=== PATIENT | male | born 1945 | race Caucasian/White ===

== ENCOUNTER 2018-11-15 07:15 | Emergency (ER) | payer MEDICARE, MEDICAID ==
[2018-11-15] MEDS ORDERED: Activated Charcoal/Sorbitol 25 GM/120 ML TUBE ONE ×2 (07:54→07:56)
[2018-11-15 08:40] LABS: #Eosinphils 0.1 thou/uL (0.0-0.7); #Lymphocytes 2.1 thou/uL (1.20-3.40); #Monocytes 0.7 thou/uL (0.11-0.59); #Neutrophils 4.4 thou/uL (1.40-6.50); %Basophils 0.2 % (0.0-1.0); %Eosinophils 1.7 % (0.0-10.0); %Lymphocytes 28.6 % (21.0-51.0); %Monocytes 9.1 % (0.0-10.0); %Neutrophils 60.4 % (42.0-75.0); Hemoglobin 16.5 g/dL (14.0-18.0); Mean Corpuscular HGB CONC 33.8 g/dL (32.0-36.0); Mean Corpuscular Hemoglobin 31.5 pg (27.0-31.0); Mean Corpuscular Volume 93.4 fL (78.0-98.0); Mean Platelet Volume 7.8 fL (7.4-10.4); Platelet Count 191 thou/uL (130-400); RBC Distribution Width 11.5 % (11.5-14.5); Red Blood Cell (RBC) Count 5.23 mill/uL (4.70-6.10); White Blood Cell (WBC) Count 7.3 thou/uL (4.8-10.8)
[2018-11-15 08:59] LABS: Acetaminophen Less than 6.0 mcg/mL (10.0-30.0); Alcohol Less than 10 mg/dL (Less than 10); Salicylate Less than 8.0 mg/dL (15.0-30.0)
[2018-11-15 09:00] LABS: ALT (SGPT) 54 U/L (8-55); AST (SGOT) 38 U/L (5-34); Albumin 4.3 g/dL (3.4-4.8); Alkaline Phosphatase 93 U/L (40-150); Anion Gap 18 mmol/L (10-20); BUN (Urea Nitrogen) 17 mg/dL (8.4-25.7); Calc. Creatinine Clearance 0 mL/min (70-130); Carbon Dioxide 22 mmol/L (23-31); Chloride 101 mmol/L (98-107); Estimated GFR-MDRD 64; Globulin 3.2 g/dL (2.4-3.5); Glucose 287 mg/dL (83-110); Magnesium 2.2 mg/dL (1.6-2.6); Potassium 4.3 mmol/L (3.5-5.1); Protein, Total 7.5 g/dL (5.8-8.1); Sodium 137 mmol/L (136-145)
[2018-11-15 10:56] LABS: #Eosinphils 0.1 thou/uL (0.0-0.7); #Lymphocytes 1.5 thou/uL (1.20-3.40); #Monocytes 0.6 thou/uL (0.11-0.59); %Basophils 0.2 % (0.0-1.0); %Eosinophils 0.8 % (0.0-10.0); %Lymphocytes 21.4 % (21.0-51.0); %Monocytes 7.8 % (0.0-10.0); %Neutrophils 69.8 % (42.0-75.0); Hemoglobin 16.4 g/dL (14.0-18.0); Mean Corpuscular HGB CONC 34.3 g/dL (32.0-36.0); Mean Corpuscular Volume 93.3 fL (78.0-98.0); Mean Platelet Volume 8.1 fL (7.4-10.4); Platelet Count 192 thou/uL (130-400); RBC Distribution Width 11.6 % (11.5-14.5); Red Blood Cell (RBC) Count 5.12 mill/uL (4.70-6.10); White Blood Cell (WBC) Count 7.2 thou/uL (4.8-10.8)
[2018-11-15 11:09] LABS: ALT (SGPT) 52 U/L (8-55); AST (SGOT) 36 U/L (5-34); Albumin 4.4 g/dL (3.4-4.8); Alkaline Phosphatase 91 U/L (40-150); Anion Gap 19 mmol/L (10-20); BUN (Urea Nitrogen) 17 mg/dL (8.4-25.7); Bilirubin, Total 0.9 mg/dL (0.2-1.2); Calc. Creatinine Clearance 0 mL/min (70-130); Carbon Dioxide 23 mmol/L (23-31); Chloride 98 mmol/L (98-107); Estimated GFR-MDRD 44; Globulin 3.1 g/dL (2.4-3.5); Glucose 379 mg/dL (83-110); Potassium 4.4 mmol/L (3.5-5.1); Protein, Total 7.5 g/dL (5.8-8.1); Sodium 136 mmol/L (136-145)
[2018-11-15 12:46] LABS: #Eosinphils 0.1 thou/uL (0.0-0.7); #Lymphocytes 1.9 thou/uL (1.20-3.40); #Monocytes 0.6 thou/uL (0.11-0.59); #Neutrophils 5.3 thou/uL (1.40-6.50); %Basophils 0.3 % (0.0-1.0); %Eosinophils 0.7 % (0.0-10.0); %Lymphocytes 24.4 % (21.0-51.0); %Monocytes 7.4 % (0.0-10.0); %Neutrophils 67.2 % (42.0-75.0); Mean Corpuscular HGB CONC 34.6 g/dL (32.0-36.0); Mean Corpuscular Hemoglobin 32.4 pg (27.0-31.0); Mean Corpuscular Volume 93.7 fL (78.0-98.0); Platelet Count 200 thou/uL (130-400); RBC Distribution Width 11.5 % (11.5-14.5); Red Blood Cell (RBC) Count 4.95 mill/uL (4.70-6.10); White Blood Cell (WBC) Count 7.8 thou/uL (4.8-10.8)
[2018-11-15 13:08] LABS: ALT (SGPT) 53 U/L (8-55); AST (SGOT) 37 U/L (5-34); Albumin 4.4 g/dL (3.4-4.8); Alkaline Phosphatase 90 U/L (40-150); Anion Gap 20 mmol/L (10-20); BUN (Urea Nitrogen) 17 mg/dL (8.4-25.7); Calc. Creatinine Clearance 0 mL/min (70-130); Carbon Dioxide 23 mmol/L (23-31); Chloride 97 mmol/L (98-107); Estimated GFR-MDRD 58; Glucose 346 mg/dL (83-110); Magnesium 1.9 mg/dL (1.6-2.6); Potassium 4.1 mmol/L (3.5-5.1); Protein, Total 7.4 g/dL (5.8-8.1); Sodium 136 mmol/L (136-145)
[2018-11-15 15:01] LABS: #Lymphocytes 2.2 thou/uL (1.20-3.40); #Monocytes 0.7 thou/uL (0.11-0.59); #Neutrophils 5.3 thou/uL (1.40-6.50); %Basophils 0.5 % (0.0-1.0); %Eosinophils 0.4 % (0.0-10.0); %Lymphocytes 26.4 % (21.0-51.0); %Neutrophils 64.7 % (42.0-75.0); Hemoglobin 16.1 g/dL (14.0-18.0); Mean Corpuscular Hemoglobin 32.1 pg (27.0-31.0); Mean Corpuscular Volume 94.3 fL (78.0-98.0); Mean Platelet Volume 8.2 fL (7.4-10.4); Platelet Count 201 thou/uL (130-400); RBC Distribution Width 11.6 % (11.5-14.5); Red Blood Cell (RBC) Count 5.01 mill/uL (4.70-6.10); White Blood Cell (WBC) Count 8.2 thou/uL (4.8-10.8)
[2018-11-15 15:27] LABS: ALT (SGPT) 53 U/L (8-55); AST (SGOT) 39 U/L (5-34); Albumin 4.3 g/dL (3.4-4.8); Alkaline Phosphatase 88 U/L (40-150); Anion Gap 18 mmol/L (10-20); BUN (Urea Nitrogen) 16 mg/dL (8.4-25.7); Bilirubin, Total 0.8 mg/dL (0.2-1.2); Calc. Creatinine Clearance 0 mL/min (70-130); Calcium 9.6 mg/dL (7.8-10.44); Carbon Dioxide 25 mmol/L (23-31); Chloride 98 mmol/L (98-107); Estimated GFR-MDRD 42; Globulin 3.1 g/dL (2.4-3.5); Glucose 332 mg/dL (83-110); Potassium 4.1 mmol/L (3.5-5.1); Protein, Total 7.4 g/dL (5.8-8.1); Sodium 137 mmol/L (136-145)
== END 2018-11-15 15:49 | disposition home or self-care (01) ==
LOC: ERS 07:15
DX: T50.1X1A Poisoning by loop [high-ceiling] diuretics, accidental (unintentional), initial encounter (principal); I10 Essential (primary) hypertension
CPT/HCPCS: 36415; 80053; 80307; 83735; 85025; 93005; 96360

== ENCOUNTER 2019-06-16 13:25 | Outpatient (CLI) | payer MEDICARE, MEDICAID ==
[2019-06-16 15:27] LABS: #Basophils 0.1 thou/uL (0.0-0.2); #Eosinphils 0.3 thou/uL (0.0-0.7); #Lymphocytes 2.8 thou/uL (1.20-3.40); #Monocytes 0.8 thou/uL (0.11-0.59); #Neutrophils 6.4 thou/uL (1.40-6.50); %Basophils 0.5 % (0.0-1.0); %Eosinophils 2.6 % (0.0-10.0); %Lymphocytes 27.1 % (21.0-51.0); %Monocytes 7.6 % (0.0-10.0); %Neutrophils 62.3 % (42.0-75.0); Hemoglobin 14.9 g/dL (14.0-18.0); Mean Corpuscular Hemoglobin 30.9 pg (27.0-31.0); Mean Platelet Volume 7.9 fL (7.4-10.4); Platelet Count 195 thou/uL (130-400); RBC Distribution Width 11.6 % (11.5-14.5); White Blood Cell (WBC) Count 10.3 thou/uL (4.8-10.8)
[2019-06-16 15:47] LABS: ALT (SGPT) 23 U/L (8-55); AST (SGOT) 19 U/L (5-34); Albumin 4.4 g/dL (3.4-4.8); Alkaline Phosphatase 78 U/L (40-150); Anion Gap 13 mmol/L (10-20); BUN (Urea Nitrogen) 18 mg/dL (8.4-25.7); Bilirubin, Total 0.9 mg/dL (0.2-1.2); Calc. Creatinine Clearance 0 mL/min (70-130); Calcium 9.6 mg/dL (7.8-10.44); Carbon Dioxide 28 mmol/L (23-31); Chloride 102 mmol/L (98-107); Estimated GFR-MDRD 56; Globulin 2.8 g/dL (2.4-3.5); Glucose 162 mg/dL (83-110); Potassium 4.2 mmol/L (3.5-5.1); Protein, Total 7.2 g/dL (5.8-8.1); Sodium 139 mmol/L (136-145)
== END 2019-06-16 13:26 | disposition home or self-care (01) ==
LOC: LABBT 13:25
PROVIDERS: ATTEND Internal Medicine Cardiovascular Disease
DX: Z01.812 Encounter for preprocedural laboratory examination (principal); I24.9 Acute ischemic heart disease, unspecified
CPT/HCPCS: 80053; 85025

== ENCOUNTER 2019-06-22 05:58 | Inpatient (IN) | payer MEDICARE, MEDICAID ==
[2019-06-22] MEDS ORDERED: Lidocaine 1% (PF) 30 ML VIAL ONE (06:33)
[2019-06-22] MEDS ORDERED: Protamine Sulfate 50 MG/5 ML VIAL ONE (06:33)
[2019-06-22] MEDS ORDERED: Heparin 10,000 UNITS/1 ML VIAL ONE (06:33)
[2019-06-22 06:55] LABS: Cardiac Risk 3.4 (Less than 4.5)
[2019-06-22] MEDS ORDERED: Fentanyl 100 MCG/2 ML VIAL ONE (07:12)
[2019-06-22] MEDS ORDERED: Midazolam HCl 2 mg/2 ml Vial ONE (07:12)
[2019-06-22] MEDS ORDERED: Nitroglycerin 0.4 MG TAB (25 Tab Bottle) SL PRN (08:01)
[2019-06-22] MEDS ORDERED: Acetaminophen/Codeine 30-300mg Tablet PO PRN ×2 (08:01)
[2019-06-22] MEDS ORDERED: Sodium Chloride 0.9% 200 ML IV PRN (08:01)
[2019-06-22] MEDS ORDERED: Sodium Chloride 0.9% 1,000 ML IV SCH (08:15)
[2019-06-22] MEDS ORDERED: Iopamidol 370 76% 100 ML VIAL ONE (10:00)
[2019-06-22] MEDS ORDERED: Iopamidol 370 76% 50 ML VIAL FS ONE (10:00)
[2019-06-22] MEDS ORDERED: Communication Order-Pharmacy FS SCH (11:53)
[2019-06-22] MEDS: Sodium Chloride 0.9% 1,000 ML IV SCH ×3 (12:26→21:48)
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
[2019-06-22] MEDS: Niacin 500 MG TAB PO SCH ×3 (13:28→20:49)
[2019-06-22] MEDS ORDERED: CINNAMON BARK PO SCH (15:00)
[2019-06-22] MEDS: Gabapentin 300 MG CAP PO SCH ×2 (15:02→20:50)
[2019-06-22] MEDS: Mupirocin 2% Ointment 22 GM Tube TOP SCH ×3 (16:01→21:10)
--- NOTE | 2019-06-22 17:57 | RAD ---
XR Chest Pa Lat STANDARD History: CABG preop Comparison: Radiograph 2003 Findings: Multiple midline sternotomy wires. Heart size mildly enlarged. Lungs are clear. No pneumoth orax or effusion. No acute osseous abnormality. 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 Impression: No acute intrathoracic abnormality.
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
[2019-06-22] MEDS: Rosuvastatin 20 MG TAB PO SCH (20:48)
[2019-06-22] MEDS: Lysine 500 MG TAB PO SCH (20:49)
[2019-06-22] MEDS: Aspirin 325 MG TAB PO SCH (20:49)
[2019-06-22] MEDS: Atenolol 50 MG TAB PO SCH (20:49)
[2019-06-22] MEDS: Docusate 100 MG CAP PO SCH (20:50)
[2019-06-22] MEDS: SAW PALMETTO PO SCH (20:55)
[2019-06-22] MEDS ORDERED: Mupirocin 2% Ointment (Nasal) 1 GM TUBE EA NARE SCH (21:00)
[2019-06-22] MEDS ORDERED: CeleCOXIB 100 MG CAP PO SCH (21:00)
[2019-06-22] MEDS: Latanoprost 0.005% Ophth Soln 2.5 ml Bottle EA EYE SCH (21:08)
[2019-06-23] MEDS: Sodium Chloride 0.9% 1,000 ML IV SCH ×2 (01:00→08:33)
[2019-06-23 05:52] LABS: Hemoglobin A1c 7.1 % (4.0-6.0)
[2019-06-23 06:01] LABS: Anion Gap 11 mmol/L (10-20); BUN (Urea Nitrogen) 16 mg/dL (8.4-25.7); Calc. Creatinine Clearance 101 mL/min (70-130); Calcium 9.1 mg/dL (7.8-10.44); Carbon Dioxide 26 mmol/L (23-31); Chloride 108 mmol/L (98-107); Estimated GFR-MDRD 61; Glucose 161 mg/dL (83-110); Potassium 4.6 mmol/L (3.5-5.1); Sodium 140 mmol/L (136-145)
[2019-06-23] MEDS: Furosemide 20 MG TAB PO SCH (08:37)
[2019-06-23] MEDS: Ascorbic Acid 500 mg Chewable Tablet PO SCH (08:37)
[2019-06-23] MEDS: Calcium Carbonate + Vit D 1 TAB PO SCH (08:37)
[2019-06-23] MEDS: Docusate 100 MG CAP PO SCH ×2 (08:37→21:34)
[2019-06-23] MEDS: Gabapentin 300 MG CAP PO SCH ×3 (08:37→21:35)
[2019-06-23] MEDS: Atenolol 50 MG TAB PO SCH ×2 (08:37→21:33)
[2019-06-23] MEDS: Niacin 500 MG TAB PO SCH ×4 (08:38→21:39)
[2019-06-23] MEDS: Lysine 500 MG TAB PO SCH ×2 (08:38→21:36)
[2019-06-23] MEDS: Multivit, Therapeutic 1 TAB PO SCH (08:38)
[2019-06-23] MEDS: Ubidecarenone 50 MG CAP PO SCH (08:39)
[2019-06-23] MEDS: SAW PALMETTO PO SCH ×2 (08:41→21:40)
[2019-06-23] MEDS: Mupirocin 2% Ointment 22 GM Tube TOP SCH ×4 (08:42→21:36)
[2019-06-23] MEDS ORDERED: CRANBERRY PO SCH (09:00)
[2019-06-23] MEDS: Aspirin 325 MG TAB PO SCH (21:33)
[2019-06-23] MEDS: Latanoprost 0.005% Ophth Soln 2.5 ml Bottle EA EYE SCH (21:35)
[2019-06-23] MEDS: Rosuvastatin 20 MG TAB PO SCH (21:41)
[2019-06-24] MEDS: Mupirocin 2% Ointment 22 GM Tube TOP SCH ×6 (04:07→22:44)
[2019-06-24] MEDS ORDERED: Albumin 5% 500 ML ONE ×2 (06:38→12:41)
[2019-06-24] MEDS ORDERED: Fentanyl 250 MCG/5 ML VIAL ONE ×2 (06:40→09:26)
[2019-06-24] MEDS ORDERED: Midazolam HCl 5 mg/5 ml Vial ONE ×3 (06:40→14:09)
[2019-06-24] MEDS ORDERED: CABG-Vancomycin 1.5 GM in Sodium Chloride 0.9% 250 ML 300 ML IVPB SCH (06:45)
[2019-06-24] MEDS ORDERED: DEXTROSE IVPB SCH (07:00)
[2019-06-24] MEDS ORDERED: LEVOFLOXACIN IVPB SCH (07:00)
[2019-06-24] MEDS ORDERED: Heparin 10,000 UNITS/1 ML VIAL 30,000 UNITS in Sodium Chloride 0.9% 1,000 ML FS SCH (07:15)
[2019-06-24] MEDS ORDERED: Dexmedetomidine 200 MCG/2 ML VIAL ONE (08:03)
[2019-06-24] MEDS ORDERED: Insulin Regular 300 UNITS/3 ML VIAL ONE (08:22)
[2019-06-24] MEDS ORDERED: Vancomycin HCl 500 MG in Sodium Chloride 0.9% 100 ML IVPB SCH ×2 (10:15→15:45)
[2019-06-24] MEDS ORDERED: PHENYLEPHRINE-NS 100 MCG/ML 10 ML SYRINGE ONE ×2 (10:28→16:29)
[2019-06-24] MEDS ORDERED: Levofloxacin 500 mg/D5W 100 ml Premix Bag ONE (10:28)
[2019-06-24] MEDS ORDERED: Phenylephrine HCL 10 MG/ML VIAL ONE (10:30)
[2019-06-24 10:40] LABS: Actual Bicarbonate (HCO3a) 23.4 mEq/L (22-28); Base Excess (BEa) -4.6 mEq/L (-2.0 to +3.0); CO2 Tension 55.4 mmHg (35.0-45.0); Calcium, Ionized 1.11 mmol/L (1.12-1.30); Carboxyhemoglobin (COHb) 0.5 gm% (0.0-3.0); Hemoglobin (Hb) 13.1 g/dL (14.0-18.0); O2 Tension (PaO2) 350.1 mmHg (> 70.0); Potassium - ABG Lab 4.23 mmol/L (3.70-5.30)
[2019-06-24 10:41] LABS: pH, Arterial 7.24 (7.35-7.45)
[2019-06-24] MEDS ORDERED: Guaifenesin DM 100-10/5 ML UDCUP PO PRN (11:10)
[2019-06-24] MEDS ORDERED: Mag-Al 1200 mg/1200 mg/30 ML UDCUP PO PRN (11:10)
[2019-06-24] MEDS ORDERED: Fentanyl 100 MCG/2 ML VIAL SLOW IVP PRN ×2 (11:10)
[2019-06-24] MEDS ORDERED: hydrALAZINE 20 MG/ML VIAL SLOW IVP PRN (11:10)
[2019-06-24] MEDS ORDERED: Bisacodyl 5 MG TAB PO PRN (11:10)
[2019-06-24] MEDS ORDERED: Promethazine HCl 25 MG/ML VIAL IM PRN (11:10)
[2019-06-24] MEDS ORDERED: Post-Op Insulin Drip Protocol IVPB ONE (11:10)
[2019-06-24] MEDS ORDERED: Norepinephrine 8 MG/0.9% NS 250 ML IVPB PRN (11:10)
[2019-06-24] MEDS ORDERED: Acetaminophen 325 MG TAB PO PRN (11:10)
[2019-06-24] MEDS ORDERED: Nitroglycerin 50 MG/250 ML BOT 250 ML IVPB PRN (11:10)
[2019-06-24] MEDS ORDERED: Bisacodyl 10 MG SUPP PR PRN (11:10)
[2019-06-24] MEDS ORDERED: niCARdipine 25 MG in Sodium Chloride 0.9% 250 ML 250 ML IVPB PRN (11:10)
[2019-06-24] MEDS ORDERED: Ondansetron PF 4 MG/2 ML Vial IVP PRN (11:10)
[2019-06-24] MEDS ORDERED: Potassium Chloride 20 MEQ/100 ML PREMIX BAG IVPB PRN (11:10)
[2019-06-24] MEDS ORDERED: Hetastarch 6% 500 ML 500 ML IVPB PRN (11:10)
[2019-06-24] MEDS ORDERED: Rocuronium Bromide 50 MG/5 ML VIAL ONE (11:24)
[2019-06-24] MEDS ORDERED: Vecuronium 10 MG VIAL ONE ×2 (11:26→16:29)
[2019-06-24] MEDS ORDERED: Dextrose 50% Abboject 50 ML SYRINGE SLOW IVP PRN (12:05)
[2019-06-24] MEDS ORDERED: Insulin Regular 300 UNITS/3 ML VIAL SC PRN (12:05)
[2019-06-24] MEDS ORDERED: HUMULIN R 100 UNITS in Sodium Chloride 0.9% 100 ML IVPB SCH (12:05)
[2019-06-24] MEDS ORDERED: Dextrose 5% in Water 1,000 ML IV PRN (12:05)
[2019-06-24] MEDS: Lysine 500 MG TAB PO SCH ×2 (14:32→22:13)
[2019-06-24] MEDS: Gabapentin 300 MG CAP PO SCH ×3 (14:32→22:13)
[2019-06-24] MEDS: Ascorbic Acid 500 mg Chewable Tablet PO SCH (14:32)
[2019-06-24] MEDS: Calcium Carbonate + Vit D 1 TAB PO SCH (14:32)
[2019-06-24] MEDS: Docusate 100 MG CAP PO SCH ×2 (14:32→22:13)
[2019-06-24] MEDS: Multivit, Therapeutic 1 TAB PO SCH (14:33)
[2019-06-24] MEDS: Niacin 500 MG TAB PO SCH ×3 (14:33→22:13)
[2019-06-24] MEDS: SAW PALMETTO PO SCH ×2 (14:35→22:14)
[2019-06-24] MEDS: Ubidecarenone 50 MG CAP PO SCH (14:36)
[2019-06-24] MEDS: Sodium Chloride 0.9% 1,000 ML IV SCH ×2 (14:37→17:53)
[2019-06-24] MEDS: Atenolol 50 MG TAB PO SCH (14:46)
[2019-06-24] MEDS: Furosemide 20 MG TAB PO SCH (14:47)
[2019-06-24] MEDS ORDERED: Mannitol 12.5 GM/50 ML ONE (16:29)
[2019-06-24] MEDS ORDERED: Sodium Bicarb 50 MEQ/50 ML VIAL ONE (16:29)
[2019-06-24] MEDS ORDERED: Heparin 30,000 units/30 ml VIAL ONE (16:29)
[2019-06-24] MEDS ORDERED: Heparin 5,000 UNITS/ML VIAL ONE (16:29)
[2019-06-24] MEDS ORDERED: Lidocaine 2% PF 100 mg/5 ml Syringe ONE (16:29)
[2019-06-24] MEDS ORDERED: Protamine Sulfate 250 MG/25 ML VIAL ONE (16:29)
[2019-06-24] MEDS ORDERED: Papaverine 60 MG/2 ML VIAL ONE (16:29)
[2019-06-24] MEDS ORDERED: Thrombin 5000 UNITS/5 ML VIAL ONE (16:29)
[2019-06-24] MEDS ORDERED: DOPamine 400 MG/10 ML VIAL ONE (16:29)
[2019-06-24] MEDS ORDERED: Calcium Chloride 1 GM/10 ML Abboject SYRINGE ONE (16:29)
[2019-06-24] MEDS ORDERED: PROPOFOL 200 MG/20 ML VIAL ONE (16:29)
[2019-06-24] MEDS ORDERED: Cardioplegic Soln 1,000 ML BAG ONE (16:29)
[2019-06-24] MEDS ORDERED: Aminocaproic Acid 5 GM/20 ML VIAL ONE (16:29)
[2019-06-24] MEDS ORDERED: Ondansetron PF 4 MG/2 ML Vial ONE (16:29)
[2019-06-24] MEDS ORDERED: Potassium Chloride 60 MEQ/30 ML VIAL ONE (16:29)
[2019-06-24] MEDS ORDERED: Magnesium 5 GM/10 ML VIAL ONE (16:29)
[2019-06-24] MEDS ORDERED: Rocuronium Bromide 10 MG/ML (10ML VIAL) ONE (16:29)
[2019-06-24 17:00] LABS: Hemoglobin 13.4 g/dL (14.0-18.0); Mean Corpuscular HGB CONC 34.7 g/dL (32.0-36.0); Mean Corpuscular Hemoglobin 31.6 pg (27.0-31.0); Mean Corpuscular Volume 91.2 fL (78.0-98.0); Mean Platelet Volume 7.8 fL (7.4-10.4); Platelet Count 202 thou/uL (130-400); RBC Distribution Width 12.2 % (11.5-14.5); Red Blood Cell (RBC) Count 4.24 mill/uL (4.70-6.10); White Blood Cell (WBC) Count 22.4 thou/uL (4.8-10.8)
[2019-06-24] MEDS ORDERED: Norepinephrine 8 MG in Dextrose 5% in Water 242 ML IVPB PRN (17:00)
[2019-06-24 17:04] LABS: INR-International Normal Ratio 1.3; PTT 31.8 SEC (22.9-36.1)
--- NOTE | 2019-06-24 17:09 | RAD ---
RADIOGRAPH CHEST 1 VIEW: DATE: 06/24/2019 TIME: 4:44 PM HISTORY: 73-year-old male status post open heart surgery COMPARISON: 06/22/2019 FINDINGS: Again noted are the sternotomy wires and surgical clips over the left mediastinum and heart. New findings of endotracheal tube, right-sided chest tube, right subclavian central line, dense opaci fication of the left lung base. No pneumothorax visualized, but this is a supine image which would be insensitive for pneumothorax de tection. No pulmonary edema. IMPRESSION: 1. Status post open heart surgery with life support lines as listed above. 2. Left lower lobe atelectasis.
[2019-06-24 17:11] LABS: Base Excess (BEa) -4.5 mEq/L (-2.0 to +3.0); CO2 Tension 34.9 mmHg (35.0-45.0); Calcium, Ionized 1.08 mmol/L (1.12-1.30); Carboxyhemoglobin (COHb) 1.6 gm% (0.0-3.0); Hemoglobin (Hb) 13.4 g/dL (14.0-18.0); O2 Tension (PaO2) 93.5 mmHg (> 70.0); Potassium - ABG Lab 4.57 mmol/L (3.70-5.30); pH, Arterial 7.38 (7.35-7.45)
[2019-06-24 17:23] LABS: Anion Gap 12 mmol/L (10-20); BUN (Urea Nitrogen) 13 mg/dL (8.4-25.7); Calc. Creatinine Clearance 117 mL/min (70-130); Calcium 8.3 mg/dL (7.8-10.44); Carbon Dioxide 21 mmol/L (23-31); Chloride 113 mmol/L (98-107); Estimated GFR-MDRD 69; Glucose 199 mg/dL (83-110); Potassium 5.1 mmol/L (3.5-5.1); Sodium 141 mmol/L (136-145)
[2019-06-24 17:31] LABS: Band 19 % (5-11); Lymphocytes 12 % (21-51); MDiff Complete? YES; Metamyelocyte 2 % (0-0); Monocytes 9 % (0-10); Neutrophil 58 % (42-75); Platelet Morphology Comment Appears Adequate; Polychromasia SLIGHT = 2-3 cells (100X) (0-2/hpf)
[2019-06-24] MEDS: Sodium Bicarb 50 MEQ/50 ML VIAL ONE (17:39)
[2019-06-24 18:40] LABS: Actual Bicarbonate (HCO3a) 20.7 mEq/L (22-28); CO2 Tension 36.6 mmHg (35.0-45.0); Calcium, Ionized 1.08 mmol/L (1.12-1.30); Carboxyhemoglobin (COHb) 1.1 gm% (0.0-3.0); Hemoglobin (Hb) 12.3 g/dL (14.0-18.0); O2 Tension (PaO2) 118.4 mmHg (> 70.0); Potassium - ABG Lab 4.24 mmol/L (3.70-5.30); pH, Arterial 7.37 (7.35-7.45)
[2019-06-24 18:42] LABS: Puncture Site LINE
[2019-06-24 20:24] LABS: Hemoglobin 12.4 g/dL (14.0-18.0)
[2019-06-24 20:40] LABS: Potassium 3.7 mmol/L (3.5-5.1)
[2019-06-24 20:48] LABS: Actual Bicarbonate (HCO3a) 22.3 mEq/L (22-28); Analyzer IN Cardio ER; Base Excess (BEa) -1.9 mEq/L (-2.0 to +3.0); CO2 Tension 36.1 mmHg (35.0-45.0); Calcium, Ionized 1.09 mmol/L (1.12-1.30); Carboxyhemoglobin (COHb) 0.3 gm% (0.0-3.0); Hemoglobin (Hb) 12.7 g/dL (14.0-18.0); O2 Tension (PaO2) 118.6 mmHg (> 70.0); Potassium - ABG Lab 3.83 mmol/L (3.70-5.30); pH, Arterial 7.41 (7.35-7.45)
[2019-06-24] MEDS: Famotidine/PF 20 mg/2ml Vial SLOW IVP SCH (21:27)
[2019-06-24 21:35] LABS: Puncture Site LINE
[2019-06-24 21:36] LABS: ALV-art Gradient -92.425 (0-20)
[2019-06-24] MEDS: Rosuvastatin 20 MG TAB PO SCH (22:14)
[2019-06-24] MEDS: Latanoprost 0.005% Ophth Soln 2.5 ml Bottle EA EYE SCH (22:38)
[2019-06-24] MEDS: HYDROcodone/Acetaminophen 5/325 mg Tablet PO PRN (22:55)
--- NOTE | 2019-06-24 23:22 | OP ---
DATE OF PROCEDURE: 06/24/2019 PROCEDURES PERFORMED: Redo coronary artery bypass grafting x3 with right internal mammary artery to the PDA and reverse greater saphenous vein graft from aorta to the obtuse marginal and from the obtuse marginal graft to the diagonal. 5-Mongolian right common femoral arterial line placement with ultrasonographic guidance. SLIDE MAKER: Lacho. ANESTHESIA: General endotracheal anesthesia. INDICATIONS: The patient is a 73-year-old man about 20 years status post coronary artery bypass grafting. He is a regular bicycle rider, but had had a protracted abstinence from riding due to inclement weather. When he recently restarted his regular regimen, he noticed chest tightness which was distinctly different from the heartburn type pain that was a manifestation of his angina 20 years ago. Resting nuclear images were fairly unremarkable, but stress images were quite difficult to interpret, prompting cardiac catheterization that demonstrated patency of his left internal mammary graft to his LAD, but occlusion of his vein grafts. He had faint filling by collaterals of his distal right system, very faint hint of an obtuse marginal and disease in a small ramus vessel and a small diagonal. He had a fairly large heart, but good ventricular function. After discussing options with him, he is now taken to the operating room for surgical revascularization. FINDINGS: Pump time 185 minutes. Cross-clamp time 76 minutes. Good quality right CLEVE and saphenous vein. There was an island of plaque in the ascending aorta prompting left common femoral arterial cannulation in construction of his obtuse marginal proximal anastomosis under cross-clamp and the heart was quite large with extensive retraction of the pericardium. The diagonal was diffusely diseased distally where grafted, it was 1.5 to 2 mm in diameter. The obtuse marginal was diffusely diseased with rock hard plaque with residual islands of plaque distally at its bifurcation, there it was a 1.5 to 2 mm vessel. The PDA was about a 1.5 mm somewhat sclerotic vessel. A femoral arterial line was placed at the conclusion of the procedure because of dampening of the waveform in the radial arterial line, about 20 mmHg gradient systolic pressures between it and the cuff. NARRATIVE REPORT: After informed consent was obtained, the patient was taken to the operating room and placed in supine position on the operating table. After the induction of general anesthesia, the patient's left greater saphenous vein was ultrasonographically mapped and marked. A triple-lumen central line kit was used to place a right subclavian central line by the Seldinger technique after prepping and draping his right upper chest. All 3 ports were easily aspirated and flushed. The line was secured. The patient's torso, groins, and lower extremities were prepped and draped in sterile fashion. A knife and electrocautery were used to incise the soft tissues through the scar of the previous sternotomy incision. The wires were cut and removed and the midline of the sternum was marked with the electrocautery. Adhesions to the posterior table of the sternum at epigastric end were developed by blunt dissection as far as I could reach with my finger without much difficulty. An oscillating saw was then used to divide the sternum. The electrocautery was used to mobilize adhesions at the central edge of the posterior table of the sternum and then an CLEVE retractor was put into place under the left half of the sternum. Initially, the electrocautery was used to lyse adhesions to the posterior chest wall and as the heart was exposed, scissors were used sharply. Blunt dissection was used to further develop the plane posterior to the right half of the sternum and then a Iniguez retractor with some difficulty was put into place. Scissors were used to sharply lyse intrapericardial adhesions starting at the diaphragmatic surface and progressing around the right side of the heart up onto the ascending aorta at the level of the previous cannulation site. The occluded right coronary vein graft was ligated and divided to facilitate with this exposure. Short dissection was carried leftward out to the retracted edge of the pericardium. The Iniguez retractor was removed and an CLEVE retractor was put under the right edge of the sternum. The right pleural space was entered and the right internal mammary artery was mobilized as a skeletonized in-situ graft beyond its bifurcation distally to near where it originated from the subclavian artery. The patient was heparinized and the mammary was ligated and divided distally. It was transected at the level of the bifurcation and there was good flow through it. Papaverine solution was instilled intraluminally. The mammary bed was inspected for hemostasis. The CLEVE retractor was replaced with a Iniguez retractor and ultimately with a Peck retractor because of difficulty with positioning of the Iniguez retractor. When further adhesions were taken down and the aorta reexamined, an island of plaque could be appreciated anteriorly to the right of midline, a little proximal to the level of the previous cannulation site, which had been controlled with pledgeted sutures. It did not appear that it would be readily feasible to dissect out the arch of pump or to cannulate and clamp the aorta below the level of that plaque. An oblique incision was made parallel to the left groin crease and the common femoral artery was exposed. It was clamped at its bifurcation. A small stab incision was made in its anterior surface and an 18-Mongolian femoral arterial cannula was inserted. The obturator was removed and the cannula was clamped and secured with umbilical tape, Yohannes, and heavy silk suture. It was de-aired and connected to the cardiopulmonary bypass circuit. A pursestring was placed in the right atrium near the remnant of the appendage and a venous cannula was inserted. Cardiopulmonary bypass was instituted and the patient was kept warm. With the patient decompressed, it was easier to dissect out the base of the arch and to dissect the left innominate vein off the aorta and pledgets to cannulation site. After having accomplished this with aorta decompressed on pump, it seemed feasible that a clamp could be placed between the innominate artery and the previous cannulation site thus avoiding the island of plaque. Sharp dissection was then used to take down the remaining intrapericardial adhesions and to extensively mobilize the left mammary pedicle. The heart was extremely large and this was a fairly long drawn out process to adequately mobilize it and the mammary to allow for exposure of the anterolateral surface of the heart. When that had been accomplished, cooling was initiated and a cruciate incision was made just anterior to the inferior cava near the level of its junction with the right atrium to allow for passage of the right mammary into the pericardium in line with the PDA. An aortic cross-clamp was applied and cardioplegia was administered through an aortic root needle. The left mammary pedicle was clamped with bulldog clamps. When arrest have been achieved, attention was turned to the anterolateral aspect of the heart. The previously grafted obtuse marginal was easily palpated and when the heart was withdrawn up into the field, the graft to it proximally could be appreciated. The vessel was deep within the epicardial fat. It was exposed and then followed out fairly distally to get to a point, where the vessel felt soft enough to be able to open and so an arteriotomy was made near bifurcation point and extended onto a good quality small branch distally using that as the toe. The arteriotomy was then extended across an island of plaque into the obtuse marginal proper and reverse greater saphenous vein was anastomosed to it end-to-side with running Prolene suture. The anastomosis was tested by flushing cold cardioplegia down the graft, 2 small leaks were controlled with [id number] 7-0 Prolene sutures. The graft flushed fairly easily. Attention was then turned to the diagonal. Again, it was readily palpable, though not visible. It was dissected out deep to the epicardial fat and opened at a relative soft spot distally. Saphenous vein was anastomosed to it end-to-side. Attention was then turned to the PDA. It was exposed a little bit distal to the previous vein graft. Distal anastomosis was a fairly sclerotic vessel at that point and was followed distally to where it became a better quality vessel. It was opened and the mammary was anastomosed to it end-to-side with running 7-0 Prolene. Additional cardioplegia was administered as the cross-clamp time to that point was approaching 1 hour. An 11 blade scalpel was used to make an incision in the king of what appeared to represent the previous obtuse marginal proximal anastomosis, that graft had already been ligated and divided to facilitate with lysis of intrapericardial adhesions. There did not appear to be much residual lumen of the vein itself and the arteriotomy was extended onto the aorta itself toward the toe of that previous anastomosis. The obtuse marginal graft was then anastomosed there end to side with running 6-0 Prolene suture. The patient was placed in Trendelenburg and the root needle was placed back on suction and the aortic cross-clamp was removed after having first flushed the aorta of excess air through the frustrated proximal anastomotic suture line. The diagonal graft was then distended. The bulldogs were removed from the right and left mammaries. The diagonal graft was distended and oriented and a point on the OM graft was selected for proximal anastomosis, that segment of OM graft was isolated between bulldog clamps and opened and the diagonal graft was anastomosed to it end-to-side with running 6-0 Prolene. Inflow was reestablished into that graft to help flush it and the suture line secured. Again, both vein grafts were de-aired and the remaining bulldogs removed from them. The anastomoses were inspected for hemostasis. A posterior pericardial drain and a right pleural drain were brought out through a separate incision and secured with suture. Right atrial and right ventricular temporary epicardial pacing wires were placed. When the patient was adequately warmed and had good contractility with a negative rhythm, he was then easily from cardiopulmonary bypass. The root needle was removed and its insertion site oversewn with a pursestring suture. The venous cannula was removed and its pursestring secured with Yohannes. The patient was autotransfused through the femoral cannula which was then removed using a Satinsky clamp to reestablish proximal control. The puncture site in the femoral artery was oversewn with a Prolene suture and the clamps removed. Test dose of protamine was well-tolerated and when about half of the protamine dose had been administered, the atrial pursestring was secured. Plasma and platelets were administered to facilitate achievement of hemostasis because of the diffuse bleeding in the face of a long pump run. When hemostasis was adequate, an anterior mediastinal drain was placed. The mediastinal fat was tacked together in an attempt to insulate the aorta and vein grafts from the sternum. Vancomycin paste and platelet rich GPS were applied to the cut surfaces of the sternum, which was then reapproximated with a combination of simple and [id number] #7 stainless steel wires. The soft tissues were irrigated and treated with platelet poor GPS. The fascia was closed over the wires with heavy Vicryl. The subcutaneous tissue was reapproximated with 2-0 Vicryl and the skin was closed with Vicryl subcuticular suture. The groin was inspected for hemostasis and closed in layers of subcutaneous and subcuticular Vicryl similar to how the vein harvest port site had been closed. Because of damping of the radial A-line pressure line and even when a good pressure waveform was re-established, there was a significant gradient of about 20 mmHg between the systolic pressures measured with the A-line and the cuff. A right femoral A-line was placed. Ultrasound was used to identify the common femoral bifurcation and to facilitate cannulation of the common femoral above that point and then by the Seldinger technique, a 5-Mongolian catheter was placed over the wire. The pressure tubing was allowed to back bleed before flushing it, there was a good waveform which correlated well with the cuff pressure, the line was secured. The wounds were dressed. The patient was taken to the intensive care unit in stable condition. Job ID: [id number]
[2019-06-25] MEDS: Sodium Chloride 0.9% 1,000 ML IV SCH (00:55)
[2019-06-25 04:17] LABS: #Monocytes 1.3 thou/uL (0.11-0.59); #Neutrophils 9.3 thou/uL (1.40-6.50); %Eosinophils 0.1 % (0.0-10.0); %Lymphocytes 8.9 % (21.0-51.0); Hemoglobin 10.4 g/dL (14.0-18.0); Mean Corpuscular Volume 91.4 fL (78.0-98.0); Mean Platelet Volume 7.3 fL (7.4-10.4); Platelet Count 140 thou/uL (130-400); RBC Distribution Width 12.5 % (11.5-14.5); Red Blood Cell (RBC) Count 3.24 mill/uL (4.70-6.10); White Blood Cell (WBC) Count 11.6 thou/uL (4.8-10.8)
[2019-06-25 04:29] LABS: Anion Gap 12 mmol/L (10-20); BUN (Urea Nitrogen) 13 mg/dL (8.4-25.7); Calc. Creatinine Clearance 133 mL/min (70-130); Calcium 7.9 mg/dL (7.8-10.44); Carbon Dioxide 23 mmol/L (23-31); Chloride 113 mmol/L (98-107); Estimated GFR-MDRD 80; Glucose 105 mg/dL (83-110); Potassium 4.1 mmol/L (3.5-5.1); Sodium 144 mmol/L (136-145)
[2019-06-25] MEDS: HYDROcodone/Acetaminophen 5/325 mg Tablet PO PRN ×4 (04:43→20:07)
[2019-06-25] MEDS ORDERED: Dextrose 50% Abboject 50 ML SYRINGE SLOW IVP PRN (07:00)
[2019-06-25] MEDS ORDERED: Dextrose 5% in Water 1,000 ML IV PRN (07:00)
--- NOTE | 2019-06-25 07:42 | RAD ---
CHEST 1 VIEW: INDICATION: Status post open heart surgery. COMPARISON: Prior exam dated 06/24/2019. FINDINGS: Right subclavian central venous catheter, right-sided thoracostomy tube are stable. The patient has been intervally extubated. There is worsening left basilar atelectasis. Cardiomegaly persists. Pul monary vascular congestion persists. Osseous structures are unchanged. IMPRESSION: 1. Interval extubation. 2. Worsening left basilar atelectasis. 3. Persistent cardiomegaly with pulmonary vascular congestion. POS: BH
--- NOTE | 2019-06-25 08:58 | CON ---
DATE OF CONSULTATION: HISTORY OF PRESENT ILLNESS: Royce Back is a 73-year-old obese gentleman, underwent cardiac catheterization. Underwent a recent treadmill, which was abnormal. Cardiac catheterization revealed coronary artery disease status post CABG. He is a former smoker, quit smoking 20 years ago. PAST MEDICAL HISTORY: Hypertension, high cholesterol, atrial fibrillation, and ankylosing spondylitis. PAST SURGICAL HISTORY: Previous surgeries; previous CABG, previous sinus surgery, and previous multiple ankle surgeries. SOCIAL HISTORY: Otherwise unremarkable. FAMILY HISTORY: Otherwise unremarkable. Though, he has had a previous sleep study, which was presumably treated with 10 cm of nasal CPAP. This was in 2006, it is unclear whether he is using his machine or not. REVIEW OF SYSTEMS: Otherwise, review of systems negative. PHYSICAL EXAMINATION: GENERAL: He is in pain. VITAL SIGNS: Pulse 77, blood pressure 130/80, saturations 98%, and respirations 18. CHEST: No wheezing or crackles. CARDIAC: Normal S1 and S2. No gallops. ABDOMEN: No masses. LABORATORY DATA: White count 11,000. Lytes are normal. Foot is growing Staph and Enterobacter. IMPRESSION AND PLAN: Status post coronary artery bypass grafting, sleep apnea, morbid obesity, high cholesterol, and hypertension. Pulmonary/Critical Care will follow in the ICU. Discussed with the patient regarding his continuous positive airway pressure machine. Early ambulation. Supportive care and PT will follow. Consultation note, 70 minutes, 50% direct patient care. Job ID: [id number]
[2019-06-25] MEDS: Niacin 500 MG TAB PO SCH ×4 (09:21→22:33)
[2019-06-25] MEDS: Atenolol 25 MG TAB PO SCH ×2 (09:21→21:55)
[2019-06-25] MEDS: Ascorbic Acid 500 mg Chewable Tablet PO SCH (09:22)
[2019-06-25] MEDS: Famotidine/PF 20 mg/2ml Vial SLOW IVP SCH ×2 (09:22→21:55)
[2019-06-25] MEDS: Aspirin 325 MG TAB PO SCH (09:22)
[2019-06-25] MEDS: Gabapentin 300 MG CAP PO SCH ×3 (09:22→21:54)
[2019-06-25] MEDS: Ubidecarenone 50 MG CAP PO SCH (09:22)
[2019-06-25] MEDS: Lysine 500 MG TAB PO SCH ×2 (09:22→21:55)
[2019-06-25] MEDS: Multivit, Therapeutic 1 TAB PO SCH (09:23)
[2019-06-25] MEDS: Calcium Carbonate + Vit D 1 TAB PO SCH (09:23)
[2019-06-25] MEDS: Docusate 100 MG CAP PO SCH ×2 (09:23→21:55)
[2019-06-25] MEDS: Mupirocin 2% Ointment 22 GM Tube TOP SCH ×2 (09:23→21:56)
[2019-06-25] MEDS: SAW PALMETTO PO SCH ×2 (09:33→22:04)
[2019-06-25] MEDS: Insulin Regular 300 UNITS/3 ML VIAL SC PRN ×2 (11:15→21:55)
[2019-06-25] MEDS: VITAMIN A 25000 UNIT PO SCH ×2 (17:01→19:16)
[2019-06-25] MEDS: ICOSAPENT ETHYL (VASCEPA) PO SCH ×3 (19:15→19:19)
[2019-06-25] MEDS: DorzolamidE/Timolol 2%/0.5% Ophth Soln 10 ml Bottle EA EYE SCH (21:53)
[2019-06-25] MEDS: Rosuvastatin 20 MG TAB PO SCH (21:55)
[2019-06-25] MEDS: Latanoprost 0.005% Ophth Soln 2.5 ml Bottle EA EYE SCH (22:33)
[2019-06-26] MEDS: HYDROcodone/Acetaminophen 5/325 mg Tablet PO PRN (04:37)
[2019-06-26 05:56] LABS: #Eosinphils 0.1 thou/uL (0.0-0.7); #Lymphocytes 1.4 thou/uL (1.20-3.40); #Monocytes 1.3 thou/uL (0.11-0.59); #Neutrophils 8.7 thou/uL (1.40-6.50); %Eosinophils 0.6 % (0.0-10.0); %Monocytes 11.6 % (0.0-10.0); %Neutrophils 75.7 % (42.0-75.0); Hemoglobin 9.4 g/dL (14.0-18.0); Mean Corpuscular HGB CONC 34.3 g/dL (32.0-36.0); Mean Corpuscular Hemoglobin 31.3 pg (27.0-31.0); Mean Corpuscular Volume 91.2 fL (78.0-98.0); Mean Platelet Volume 7.8 fL (7.4-10.4); Platelet Count 127 thou/uL (130-400); RBC Distribution Width 12.3 % (11.5-14.5); Red Blood Cell (RBC) Count 3.01 mill/uL (4.70-6.10); White Blood Cell (WBC) Count 11.5 thou/uL (4.8-10.8)
[2019-06-26 06:05] LABS: Anion Gap 9 mmol/L (10-20); BUN (Urea Nitrogen) 13 mg/dL (8.4-25.7); Calc. Creatinine Clearance 126 mL/min (70-130); Calcium 8.2 mg/dL (7.8-10.44); Carbon Dioxide 27 mmol/L (23-31); Chloride 106 mmol/L (98-107); Estimated GFR-MDRD 75; Glucose 184 mg/dL (83-110); Potassium 4.2 mmol/L (3.5-5.1); Sodium 138 mmol/L (136-145)
[2019-06-26] MEDS: Insulin Regular 300 UNITS/3 ML VIAL SC PRN ×3 (06:11→17:37)
--- NOTE | 2019-06-26 08:01 | RAD ---
Frontal radiograph chest 06/26/2019 COMPARISON: 06/25/2019 HISTORY: Evaluate chest following open heart surgery FINDINGS: Drainage catheter overlies the right lung base. Stable right-sided vascular catheter. There is a questionable new small right apical pneumothorax. There is dense pleural and parenchymal opacity within the left base with obscuration left hemidiaphragm and blunting of the left costophreni c angle. Midline sternotomy wires and mediastinal clips are present. Impression: Questionable pneumothorax in right lung apex. Follow-up inspiration and expiration fronta l radiograph chest advised. Annmarie Lucio, registered nurse in the CCU, made aware at 7:59 AM 06/26/2019.
[2019-06-26] MEDS: Aspirin 325 MG TAB PO SCH (08:46)
[2019-06-26] MEDS: Atenolol 25 MG TAB PO SCH (08:46)
[2019-06-26] MEDS: Ubidecarenone 50 MG CAP PO SCH (08:47)
[2019-06-26] MEDS: Calcium Carbonate + Vit D 1 TAB PO SCH (08:47)
[2019-06-26] MEDS: Ascorbic Acid 500 mg Chewable Tablet PO SCH (08:47)
[2019-06-26] MEDS: Gabapentin 300 MG CAP PO SCH ×3 (08:47→22:08)
[2019-06-26] MEDS: Docusate 100 MG CAP PO SCH ×2 (08:48→22:09)
[2019-06-26] MEDS: Multivit, Therapeutic 1 TAB PO SCH (08:48)
[2019-06-26] MEDS: Mupirocin 2% Ointment 22 GM Tube TOP SCH ×2 (08:49→22:05)
[2019-06-26] MEDS: SAW PALMETTO PO SCH ×2 (08:50→22:10)
[2019-06-26] MEDS: DorzolamidE/Timolol 2%/0.5% Ophth Soln 10 ml Bottle EA EYE SCH ×2 (08:51→22:06)
[2019-06-26] MEDS: Famotidine/PF 20 mg/2ml Vial SLOW IVP SCH (08:53)
[2019-06-26] MEDS: Lysine 500 MG TAB PO SCH ×2 (09:01→22:09)
[2019-06-26] MEDS: Niacin 500 MG TAB PO SCH ×4 (09:01→22:08)
--- NOTE | 2019-06-26 09:22 | PRG ---
DATE OF SERVICE: 06/26/2019 SUBJECTIVE: Royce Back is status post CABG. X-ray today showed unfortunately a small apical pneumothorax, although he still got a chest tube in place. Less pain. Less shortness of breath. OBJECTIVE: VITAL SIGNS: Blood pressure 120/59, pulse 87, respirations 18, and afebrile. CHEST: Bilateral rhonchi. CARDIAC: Normal S1 and S2. No gallops. ASSESSMENT: 1. Status post coronary artery bypass grafting. 2. Sleep apnea. 3. Apical pneumothorax. PLAN: Continue present treatment. We will follow while in the ICU. Job ID: [id number]
[2019-06-26] MEDS ORDERED: Dextrose 5% in Water 1,000 ML IV PRN (09:43)
[2019-06-26] MEDS ORDERED: Metolazone 5 MG TAB PO SCH (09:43)
[2019-06-26] MEDS ORDERED: diphenhydrAMINE 25 MG CAP PO PRN (09:43)
[2019-06-26] MEDS ORDERED: Nitroglycerin 0.4 MG TAB (25 Tab Bottle) SL PRN (09:43)
[2019-06-26] MEDS ORDERED: Mineral Oil ENEMA PR PRN (09:43)
[2019-06-26] MEDS ORDERED: Dextrose 50% Abboject 50 ML SYRINGE SLOW IVP PRN (09:43)
[2019-06-26] MEDS ORDERED: Artificial Tears 18 DROP/0.9 ML EA EYE PRN (09:43)
[2019-06-26] MEDS ORDERED: Furosemide 40 MG TAB PO SCH ×2 (09:43→10:15)
[2019-06-26] MEDS ORDERED: Zolpidem Tartrate 5 MG TAB PO PRN (09:43)
[2019-06-26] MEDS ORDERED: Bisacodyl 10 MG SUPP PR PRN (09:43)
[2019-06-26] MEDS ORDERED: Guaifenesin DM 100-10/5 ML UDCUP PO PRN (09:43)
[2019-06-26] MEDS ORDERED: Atenolol 25 MG TAB PO SCH (10:00)
[2019-06-26 14:04] LABS: Actual Bicarbonate (HCO3a) 24.7 mEq/L (22-28); Analyzer IN Cardio OR; Base Excess (BEa) -0.4 mEq/L (-2.0 to +3.0); CO2 Tension 42.3 mmHg (35.0-45.0); Calcium, Ionized 0.97 mmol/L (1.12-1.30); Carboxyhemoglobin (COHb) 0.1 gm% (0.0-3.0); Hemoglobin (Hb) 8.2 g/dL (14.0-18.0); O2 Tension (PaO2) 430.6 mmHg (> 70.0); Potassium - ABG Lab 4.51 mmol/L (3.70-5.30); pH, Arterial 7.38 (7.35-7.45)
[2019-06-26 14:04] LABS: Analyzer IN Cardio OR; Base Excess (BEa) 0.9 mEq/L (-2.0 to +3.0); CO2 Tension 43.9 mmHg (35.0-45.0); Calcium, Ionized 0.99 mmol/L (1.12-1.30); Hemoglobin (Hb) 8.8 g/dL (14.0-18.0); Potassium - ABG Lab 4.77 mmol/L (3.70-5.30); pH, Arterial 7.39 (7.35-7.45)
[2019-06-26 14:04] LABS: Analyzer IN Cardio OR; Base Excess (BEa) -1.6 mEq/L (-2.0 to +3.0); CO2 Tension 49.1 mmHg (35.0-45.0); Calcium, Ionized 1.13 mmol/L (1.12-1.30); Carboxyhemoglobin (COHb) 1.1 gm% (0.0-3.0); Hemoglobin (Hb) 14.1 g/dL (14.0-18.0); O2 Tension (PaO2) 393.4 mmHg (> 70.0); Potassium - ABG Lab 4.01 mmol/L (3.70-5.30); pH, Arterial 7.32 (7.35-7.45)
[2019-06-26 14:05] LABS: Actual Bicarbonate (HCO3a) 21.2 mEq/L (22-28); Analyzer IN Cardio OR; Base Excess (BEa) -2.8 mEq/L (-2.0 to +3.0); CO2 Tension 33.4 mmHg (35.0-45.0); Calcium, Ionized 1.05 mmol/L (1.12-1.30); Carboxyhemoglobin (COHb) 0.4 gm% (0.0-3.0); Hemoglobin (Hb) 8.5 g/dL (14.0-18.0); O2 Tension (PaO2) 422.9 mmHg (> 70.0); Potassium - ABG Lab 3.99 mmol/L (3.70-5.30); pH, Arterial 7.42 (7.35-7.45)
[2019-06-26 14:06] LABS: Puncture Site ALINE
[2019-06-26 14:06] LABS: Puncture Site ALINE
[2019-06-26 14:06] LABS: Puncture Site ALINE
[2019-06-26 14:07] LABS: Puncture Site ALINE
[2019-06-26 14:09] LABS: Actual Bicarbonate (HCO3a) 20.8 mEq/L (22-28); Analyzer IN Cardio OR; Base Excess (BEa) -5.5 mEq/L (-2.0 to +3.0); CO2 Tension 44.4 mmHg (35.0-45.0); Calcium, Ionized 1.61 mmol/L (1.12-1.30); Carboxyhemoglobin (COHb) 0.3 gm% (0.0-3.0); Hemoglobin (Hb) 9.3 g/dL (14.0-18.0); O2 Tension (PaO2) 103.7 mmHg (> 70.0); Potassium - ABG Lab 4.23 mmol/L (3.70-5.30); Puncture Site ALINE; pH, Arterial 7.29 (7.35-7.45)
[2019-06-26 14:10] LABS: Actual Bicarbonate (HCO3a) 21.2 mEq/L (22-28); Base Excess (BEa) -3.9 mEq/L (-2.0 to +3.0); CO2 Tension 38.6 mmHg (35.0-45.0); Calcium, Ionized 1.02 mmol/L (1.12-1.30); Carboxyhemoglobin (COHb) 0.6 gm% (0.0-3.0); Hemoglobin (Hb) 11.3 g/dL (14.0-18.0); O2 Tension (PaO2) 496.4 mmHg (> 70.0); Potassium - ABG Lab 4.45 mmol/L (3.70-5.30); pH, Arterial 7.36 (7.35-7.45)
[2019-06-26 14:11] LABS: Puncture Site ALINE
[2019-06-26 14:17] LABS: Actual Bicarbonate (HCO3v) 23 mEq/L (22-28); Base Excess -3.5 mEq/L (-2.0 to +3.0); Calcium, Ionized 1.04 mmol/L (1.16-1.32); Chloride (ABG LAB) 106 mmol/L (98-106); Hemoglobin (Hb) 11.4 g/dL (12.6-17.4); Potassium - ABG Lab 4.46 mmol/L (3.70-5.30); Sodium 136.9 mmol/L (133-146); pH (venous) 7.31 (7.32-7.43)
[2019-06-26 15:18] LABS: Actual Bicarbonate (HCO3a) 23.2 mEq/L (22-28); Analyzer IN Cardio OR; Base Excess (BEa) -3.4 mEq/L (-2.0 to +3.0); CO2 Tension 48.6 mmHg (35.0-45.0); Calcium, Ionized 1.16 mmol/L (1.12-1.30); Carboxyhemoglobin (COHb) 0.4 gm% (0.0-3.0); Hemoglobin (Hb) 11.8 g/dL (14.0-18.0); O2 Tension (PaO2) 110.1 mmHg (> 70.0); Potassium - ABG Lab 4.28 mmol/L (3.70-5.30); Puncture Site ALINE
[2019-06-26] MEDS: Latanoprost 0.005% Ophth Soln 2.5 ml Bottle EA EYE SCH (22:05)
[2019-06-26] MEDS: Atenolol 50 MG TAB PO SCH (22:07)
[2019-06-26] MEDS: Rosuvastatin 20 MG TAB PO SCH (22:23)
[2019-06-27] MEDS: HYDROcodone/Acetaminophen 5/325 mg Tablet PO PRN ×2 (03:41→13:11)
[2019-06-27 05:28] LABS: #Eosinphils 0.1 thou/uL (0.0-0.7); #Lymphocytes 1.9 thou/uL (1.20-3.40); #Monocytes 1.4 thou/uL (0.11-0.59); #Neutrophils 8.1 thou/uL (1.40-6.50); %Basophils 0.2 % (0.0-1.0); %Eosinophils 0.8 % (0.0-10.0); %Lymphocytes 16.5 % (21.0-51.0); %Monocytes 12.3 % (0.0-10.0); %Neutrophils 70.1 % (42.0-75.0); Mean Corpuscular HGB CONC 35.1 g/dL (32.0-36.0); Mean Corpuscular Volume 91.3 fL (78.0-98.0); Mean Platelet Volume 7.8 fL (7.4-10.4); Platelet Count 152 thou/uL (130-400); RBC Distribution Width 12.1 % (11.5-14.5); Red Blood Cell (RBC) Count 3.11 mill/uL (4.70-6.10); White Blood Cell (WBC) Count 11.5 thou/uL (4.8-10.8)
[2019-06-27 05:48] LABS: Anion Gap 11 mmol/L (10-20); BUN (Urea Nitrogen) 13 mg/dL (8.4-25.7); Calc. Creatinine Clearance 103 mL/min (70-130); Calcium 8.5 mg/dL (7.8-10.44); Carbon Dioxide 29 mmol/L (23-31); Chloride 97 mmol/L (98-107); Estimated GFR-MDRD 63; Glucose 211 mg/dL (83-110); Potassium 3.6 mmol/L (3.5-5.1); Sodium 133 mmol/L (136-145)
[2019-06-27] MEDS ORDERED: Furosemide 40 MG TAB PO SCH (07:30)
--- NOTE | 2019-06-27 08:35 | RAD ---
CHEST 1 VIEW: Date: 06/27/19 HISTORY: Post coronary artery bypass graft. COMPARISON: 06/26/19. FINDINGS: Postop midline sternotomy. Minimal increased lucency in the right apex. The previously noted fairly w ell defined pleural line is not definitely imaged on today's study, but I still favor the possibility of a small right apical pneumothorax. Persistent pleural and parenchymal changes in the left base an d parenchymal changes in the right base. IMPRESSION: Overall stable chest. Probable small persistent right apical pneumothorax. Continue short-term follow -up. POS: ADDISON
[2019-06-27] MEDS: DorzolamidE/Timolol 2%/0.5% Ophth Soln 10 ml Bottle EA EYE SCH ×2 (10:21→21:09)
[2019-06-27] MEDS: Ubidecarenone 50 MG CAP PO SCH (10:22)
[2019-06-27] MEDS: Niacin 500 MG TAB PO SCH ×4 (10:22→21:12)
[2019-06-27] MEDS: Docusate 100 MG CAP PO SCH ×2 (10:22→21:11)
[2019-06-27] MEDS: Ascorbic Acid 500 mg Chewable Tablet PO SCH (10:22)
[2019-06-27] MEDS: Atenolol 50 MG TAB PO SCH ×2 (10:22→21:11)
[2019-06-27] MEDS: Gabapentin 300 MG CAP PO SCH ×3 (10:22→21:11)
[2019-06-27] MEDS: Calcium Carbonate + Vit D 1 TAB PO SCH (10:22)
[2019-06-27] MEDS: Multivit, Therapeutic 1 TAB PO SCH (10:23)
[2019-06-27] MEDS: Aspirin 325 mg Enteric Coated Tablet PO SCH (10:23)
[2019-06-27] MEDS: Lysine 500 MG TAB PO SCH ×2 (10:23→21:12)
[2019-06-27] MEDS: Mupirocin 2% Ointment 22 GM Tube TOP SCH ×2 (10:23→21:12)
[2019-06-27] MEDS: SAW PALMETTO PO SCH ×2 (10:24→21:15)
[2019-06-27] MEDS: Insulin Regular 300 UNITS/3 ML VIAL SC PRN (13:08)
[2019-06-27] MEDS: Rosuvastatin 20 MG TAB PO SCH (21:10)
[2019-06-27] MEDS: Latanoprost 0.005% Ophth Soln 2.5 ml Bottle EA EYE SCH (21:26)
[2019-06-28] MEDS: HYDROcodone/Acetaminophen 5/325 mg Tablet PO PRN ×2 (00:55→21:23)
[2019-06-28 06:01] LABS: #Eosinphils 0.2 thou/uL (0.0-0.7); #Lymphocytes 2.6 thou/uL (1.20-3.40); #Monocytes 1.7 thou/uL (0.11-0.59); #Neutrophils 8.1 thou/uL (1.40-6.50); %Basophils 0.3 % (0.0-1.0); %Eosinophils 1.8 % (0.0-10.0); %Lymphocytes 20.1 % (21.0-51.0); %Monocytes 13.4 % (0.0-10.0); %Neutrophils 64.3 % (42.0-75.0); Hemoglobin 10.9 g/dL (14.0-18.0); Mean Corpuscular HGB CONC 35.1 g/dL (32.0-36.0); Mean Corpuscular Volume 91.3 fL (78.0-98.0); Mean Platelet Volume 7.5 fL (7.4-10.4); Platelet Count 217 thou/uL (130-400); RBC Distribution Width 12.3 % (11.5-14.5); Red Blood Cell (RBC) Count 3.42 mill/uL (4.70-6.10); White Blood Cell (WBC) Count 12.6 thou/uL (4.8-10.8)
[2019-06-28 06:13] LABS: Anion Gap 15 mmol/L (10-20); BUN (Urea Nitrogen) 20 mg/dL (8.4-25.7); Calc. Creatinine Clearance 82 mL/min (70-130); Calcium 9.7 mg/dL (7.8-10.44); Carbon Dioxide 34 mmol/L (23-31); Chloride 90 mmol/L (98-107); Estimated GFR-MDRD 51; Glucose 242 mg/dL (83-110); Potassium 4.3 mmol/L (3.5-5.1); Sodium 135 mmol/L (136-145)
[2019-06-28] MEDS: Mupirocin 2% Ointment 22 GM Tube TOP SCH ×3 (08:00→21:34)
--- NOTE | 2019-06-28 09:30 | RAD ---
Exam: Chest one view portable: HISTORY: Status post coronary bypass grafts. Comparison: 06/27/2019 FINDINGS: Pleural and parenchymal opacity changes in the left base, stable. No significant new process. IMPRESSION: Stable chest. Continued short-term follow-up.
[2019-06-28] MEDS: Ascorbic Acid 500 mg Chewable Tablet PO SCH (09:34)
[2019-06-28] MEDS: Aspirin 325 mg Enteric Coated Tablet PO SCH (09:35)
[2019-06-28] MEDS: Atenolol 50 MG TAB PO SCH ×2 (09:35→21:22)
[2019-06-28] MEDS: Calcium Carbonate + Vit D 1 TAB PO SCH (09:36)
[2019-06-28] MEDS: Docusate 100 MG CAP PO SCH ×2 (09:37→21:22)
[2019-06-28] MEDS: DorzolamidE/Timolol 2%/0.5% Ophth Soln 10 ml Bottle EA EYE SCH ×2 (09:38→21:20)
[2019-06-28] MEDS: Gabapentin 300 MG CAP PO SCH ×3 (09:38→21:23)
[2019-06-28] MEDS: Lysine 500 MG TAB PO SCH ×2 (09:39→21:22)
[2019-06-28] MEDS: Niacin 500 MG TAB PO SCH ×4 (09:39→21:22)
[2019-06-28] MEDS: Multivit, Therapeutic 1 TAB PO SCH (09:39)
[2019-06-28] MEDS: Insulin Regular 300 UNITS/3 ML VIAL SC PRN ×2 (09:40→12:41)
[2019-06-28] MEDS: Ubidecarenone 50 MG CAP PO SCH (09:40)
[2019-06-28] MEDS: SAW PALMETTO PO SCH ×2 (12:52→21:23)
[2019-06-28] MEDS: Sodium Chloride 0.9% 10 ML ONE ×2 (12:52→21:21)
[2019-06-28] MEDS: Rosuvastatin 20 MG TAB PO SCH (21:32)
[2019-06-28] MEDS: Latanoprost 0.005% Ophth Soln 2.5 ml Bottle EA EYE SCH (21:33)
[2019-06-29 05:59] LABS: #Eosinphils 0.3 thou/uL (0.0-0.7); #Lymphocytes 2.2 thou/uL (1.20-3.40); #Monocytes 1.4 thou/uL (0.11-0.59); #Neutrophils 7.4 thou/uL (1.40-6.50); %Basophils 0.2 % (0.0-1.0); %Eosinophils 3.1 % (0.0-10.0); %Lymphocytes 19.1 % (21.0-51.0); %Monocytes 12.6 % (0.0-10.0); %Neutrophils 65.1 % (42.0-75.0); Hemoglobin 10.8 g/dL (14.0-18.0); Mean Corpuscular HGB CONC 34.7 g/dL (32.0-36.0); Mean Corpuscular Hemoglobin 31.5 pg (27.0-31.0); Mean Corpuscular Volume 90.8 fL (78.0-98.0); Platelet Count 285 thou/uL (130-400); RBC Distribution Width 12.5 % (11.5-14.5); Red Blood Cell (RBC) Count 3.43 mill/uL (4.70-6.10); White Blood Cell (WBC) Count 11.3 thou/uL (4.8-10.8)
[2019-06-29 06:16] LABS: Anion Gap 16 mmol/L (10-20); BUN (Urea Nitrogen) 23 mg/dL (8.4-25.7); Calc. Creatinine Clearance 72 mL/min (70-130); Calcium 9.7 mg/dL (7.8-10.44); Carbon Dioxide 32 mmol/L (23-31); Chloride 87 mmol/L (98-107); Estimated GFR-MDRD 45; Glucose 256 mg/dL (83-110); Potassium 3.3 mmol/L (3.5-5.1); Sodium 132 mmol/L (136-145)
[2019-06-29] MEDS ORDERED: Sodium Chloride 0.9% 1,000 ML IV SCH (08:45)
[2019-06-29] MEDS ORDERED: Sodium Chloride 0.9% 10 ML ONE (08:54)
[2019-06-29] MEDS: Insulin Regular 300 UNITS/3 ML VIAL SC PRN ×3 (09:26→21:07)
[2019-06-29] MEDS: Multivit, Therapeutic 1 TAB PO SCH (09:31)
[2019-06-29] MEDS: Calcium Carbonate + Vit D 1 TAB PO SCH (09:32)
[2019-06-29] MEDS: Ubidecarenone 50 MG CAP PO SCH (09:32)
[2019-06-29] MEDS: Atenolol 50 MG TAB PO SCH ×2 (09:32→20:42)
[2019-06-29] MEDS: Niacin 500 MG TAB PO SCH ×4 (09:32→20:42)
[2019-06-29] MEDS: Docusate 100 MG CAP PO SCH ×2 (09:32→20:43)
[2019-06-29] MEDS: Ascorbic Acid 500 mg Chewable Tablet PO SCH (09:32)
[2019-06-29] MEDS: Mupirocin 2% Ointment 22 GM Tube TOP SCH ×2 (09:33→20:45)
[2019-06-29] MEDS: Gabapentin 300 MG CAP PO SCH ×3 (09:33→20:42)
[2019-06-29] MEDS: Bisacodyl 5 MG TAB PO PRN (09:33)
[2019-06-29] MEDS: Lysine 500 MG TAB PO SCH ×2 (09:34→20:43)
[2019-06-29] MEDS: DorzolamidE/Timolol 2%/0.5% Ophth Soln 10 ml Bottle EA EYE SCH ×2 (09:34→20:43)
[2019-06-29] MEDS: Aspirin 325 mg Enteric Coated Tablet PO SCH (09:35)
[2019-06-29] MEDS: SAW PALMETTO PO SCH ×2 (09:48→20:45)
[2019-06-29 16:30] LABS: Bacteria/HPF None Seen HPF (None Seen); Bilirubin Negative (Negative); Blood, Urine Negative (Negative); Clarity Clear (Clear); Glucose, Urine (Dipstick) 150 mg/dL (Negative); Leukocyte Negative Leu/uL (Negative); Nitrite Negative (Negative); Protein, Urine (Dipstick) 20 mg/dL (Neg-Trace); RBC/HPF 0-3 HPF (0-3); Squamous Epithelial None Seen HPF (0-3); Urobilinogen Normal mg/dL (Less than 2); WBC/HPF 0-3 HPF (0-3)
[2019-06-29] MEDS: Rosuvastatin 20 MG TAB PO SCH (20:42)
[2019-06-29] MEDS: Latanoprost 0.005% Ophth Soln 2.5 ml Bottle EA EYE SCH (20:43)
[2019-06-30 05:36] LABS: Anion Gap 12 mmol/L (10-20); BUN (Urea Nitrogen) 23 mg/dL (8.4-25.7); Calc. Creatinine Clearance 84 mL/min (70-130); Calcium 8.9 mg/dL (7.8-10.44); Carbon Dioxide 33 mmol/L (23-31); Chloride 90 mmol/L (98-107); Estimated GFR-MDRD 53; Glucose 227 mg/dL (83-110); Sodium 132 mmol/L (136-145)
[2019-06-30 05:39] LABS: Potassium 2.9 mmol/L (3.5-5.1)
[2019-06-30] MEDS: Potassium Chloride 20 MEQ TAB PO SCH ×2 (06:03→11:55)
[2019-06-30 06:06] LABS: #Eosinphils 0.4 thou/uL (0.0-0.7); #Lymphocytes 1.8 thou/uL (1.20-3.40); #Monocytes 1.4 thou/uL (0.11-0.59); #Neutrophils 7.9 thou/uL (1.40-6.50); %Basophils 0.4 % (0.0-1.0); %Eosinophils 3.2 % (0.0-10.0); %Lymphocytes 16.1 % (21.0-51.0); %Monocytes 11.8 % (0.0-10.0); %Neutrophils 68.5 % (42.0-75.0); Anisocytosis SLIGHT = 6-15 cells (100X) (0-5/hpf); MDiff Complete? YES; Mean Corpuscular HGB CONC 35.5 g/dL (32.0-36.0); Mean Platelet Volume 7.9 fL (7.4-10.4); Platelet Count 291 thou/uL (130-400); Polychromasia SLIGHT = 2-3 cells (100X) (0-2/hpf); Red Blood Cell (RBC) Count 3.14 mill/uL (4.70-6.10); White Blood Cell (WBC) Count 11.5 thou/uL (4.8-10.8)
[2019-06-30] MEDS: Insulin Regular 300 UNITS/3 ML VIAL SC PRN ×3 (06:13→17:57)
[2019-06-30] MEDS: Ubidecarenone 50 MG CAP PO SCH (08:29)
[2019-06-30] MEDS: Lysine 500 MG TAB PO SCH ×2 (08:30→22:39)
[2019-06-30] MEDS: Niacin 500 MG TAB PO SCH ×4 (08:30→22:16)
[2019-06-30] MEDS: Atenolol 50 MG TAB PO SCH ×2 (08:30→22:17)
[2019-06-30] MEDS: Calcium Carbonate + Vit D 1 TAB PO SCH (08:30)
[2019-06-30] MEDS: Multivit, Therapeutic 1 TAB PO SCH (08:30)
[2019-06-30] MEDS: Docusate 100 MG CAP PO SCH ×2 (08:31→22:17)
[2019-06-30] MEDS: Ascorbic Acid 500 mg Chewable Tablet PO SCH (08:31)
[2019-06-30] MEDS: Gabapentin 300 MG CAP PO SCH ×3 (08:31→22:18)
[2019-06-30] MEDS: Aspirin 325 mg Enteric Coated Tablet PO SCH (08:31)
[2019-06-30] MEDS: Bisacodyl 5 MG TAB PO PRN (08:32)
[2019-06-30] MEDS: DorzolamidE/Timolol 2%/0.5% Ophth Soln 10 ml Bottle EA EYE SCH ×2 (08:32→22:18)
[2019-06-30] MEDS: Mupirocin 2% Ointment 22 GM Tube TOP SCH ×2 (08:33→22:19)
[2019-06-30] MEDS: SAW PALMETTO PO SCH ×2 (08:33→22:20)
[2019-06-30] MEDS: Rosuvastatin 20 MG TAB PO SCH (22:16)
[2019-06-30] MEDS: Latanoprost 0.005% Ophth Soln 2.5 ml Bottle EA EYE SCH (22:39)
[2019-07-01 05:50] LABS: Hemoglobin 10.7 g/dL (14.0-18.0); Mean Corpuscular HGB CONC 35.5 g/dL (32.0-36.0); Mean Corpuscular Hemoglobin 32.6 pg (27.0-31.0); Mean Corpuscular Volume 91.7 fL (78.0-98.0); Mean Platelet Volume 7.4 fL (7.4-10.4); Platelet Count 370 thou/uL (130-400); RBC Distribution Width 13.2 % (11.5-14.5); Red Blood Cell (RBC) Count 3.29 mill/uL (4.70-6.10)
[2019-07-01 05:52] LABS: Anion Gap 15 mmol/L (10-20); BUN (Urea Nitrogen) 21 mg/dL (8.4-25.7); Calc. Creatinine Clearance 81 mL/min (70-130); Calcium 9.1 mg/dL (7.8-10.44); Carbon Dioxide 28 mmol/L (23-31); Chloride 94 mmol/L (98-107); Estimated GFR-MDRD 50; Glucose 209 mg/dL (83-110); Potassium 3.7 mmol/L (3.5-5.1); Sodium 133 mmol/L (136-145)
[2019-07-01 06:16] LABS: Band 2 % (5-11); Eosinophils 2 % (0-10); Lymphocytes 14 % (21-51); MDiff Complete? YES; Monocytes 14 % (0-10); Myelocyte 1 % (0-0); Neutrophil 67 % (42-75); Nucleated RBC 4 % (0); Polychromasia SLIGHT = 2-3 cells (100X) (0-2/hpf); White Blood Cell (WBC) Count 13.5 thou/uL (4.8-10.8)
[2019-07-01] MEDS: Niacin 500 MG TAB PO SCH ×4 (09:53→21:55)
[2019-07-01] MEDS: Calcium Carbonate + Vit D 1 TAB PO SCH (09:53)
[2019-07-01] MEDS: Docusate 100 MG CAP PO SCH ×2 (09:53→21:55)
[2019-07-01] MEDS: Atenolol 50 MG TAB PO SCH ×2 (09:53→21:55)
[2019-07-01] MEDS: Aspirin 325 mg Enteric Coated Tablet PO SCH (09:53)
[2019-07-01] MEDS: Ascorbic Acid 500 mg Chewable Tablet PO SCH (09:54)
[2019-07-01] MEDS: Multivit, Therapeutic 1 TAB PO SCH (09:54)
[2019-07-01] MEDS: Gabapentin 300 MG CAP PO SCH ×3 (09:54→21:55)
[2019-07-01] MEDS: DorzolamidE/Timolol 2%/0.5% Ophth Soln 10 ml Bottle EA EYE SCH ×2 (09:54→21:56)
[2019-07-01] MEDS: Ubidecarenone 50 MG CAP PO SCH (09:54)
[2019-07-01] MEDS: Mupirocin 2% Ointment 22 GM Tube TOP SCH ×3 (09:55→21:56)
[2019-07-01] MEDS: Lysine 500 MG TAB PO SCH ×2 (09:55→23:02)
[2019-07-01] MEDS: SAW PALMETTO PO SCH ×2 (09:56→21:56)
[2019-07-01] MEDS: Insulin Regular 300 UNITS/3 ML VIAL SC PRN ×2 (12:48→18:03)
[2019-07-01] MEDS: Bisacodyl 5 MG TAB PO PRN (16:34)
[2019-07-01] MEDS: Mag-Al 1200 mg/1200 mg/30 ML UDCUP PO PRN (16:34)
[2019-07-01] MEDS: Rosuvastatin 20 MG TAB PO SCH (21:54)
[2019-07-01] MEDS: Latanoprost 0.005% Ophth Soln 2.5 ml Bottle EA EYE SCH (21:55)
[2019-07-02] MEDS: Lysine 500 MG TAB PO SCH ×2 (08:55→21:00)
[2019-07-02] MEDS: Mag-Al 1200 mg/1200 mg/30 ML UDCUP PO PRN (08:55)
[2019-07-02] MEDS: Bisacodyl 5 MG TAB PO PRN (08:55)
[2019-07-02] MEDS: Ascorbic Acid 500 mg Chewable Tablet PO SCH (08:55)
[2019-07-02] MEDS: Aspirin 325 mg Enteric Coated Tablet PO SCH (08:55)
[2019-07-02] MEDS: Atenolol 50 MG TAB PO SCH ×2 (08:56→21:00)
[2019-07-02] MEDS: Docusate 100 MG CAP PO SCH ×2 (08:56→21:00)
[2019-07-02] MEDS: Gabapentin 300 MG CAP PO SCH ×3 (08:56→21:00)
[2019-07-02] MEDS: Niacin 500 MG TAB PO SCH ×4 (08:56→21:00)
[2019-07-02] MEDS: Multivit, Therapeutic 1 TAB PO SCH (08:56)
[2019-07-02] MEDS: Ubidecarenone 50 MG CAP PO SCH (08:56)
[2019-07-02] MEDS: Calcium Carbonate + Vit D 1 TAB PO SCH (08:57)
[2019-07-02] MEDS: DorzolamidE/Timolol 2%/0.5% Ophth Soln 10 ml Bottle EA EYE SCH ×2 (08:57→20:59)
[2019-07-02] MEDS: Mupirocin 2% Ointment 22 GM Tube TOP SCH ×2 (08:58→21:54)
[2019-07-02] MEDS: SAW PALMETTO PO SCH ×2 (08:59→21:02)
[2019-07-02 11:24] VITALS: BMI 33.7
[2019-07-02] MEDS ORDERED: Milk Of Magnesia 30 ML UDCUP PO SCH (15:15)
[2019-07-02] MEDS: Insulin Regular 300 UNITS/3 ML VIAL SC PRN (17:46)
[2019-07-02] MEDS ORDERED: Magnesium Citrate 300 ML BOT PO SCH (18:45)
[2019-07-02] MEDS: Latanoprost 0.005% Ophth Soln 2.5 ml Bottle EA EYE SCH (20:59)
[2019-07-02] MEDS: Rosuvastatin 20 MG TAB PO SCH (21:00)
[2019-07-03 07:50] VITALS: TEMP 98
[2019-07-03] MEDS: Calcium Carbonate + Vit D 1 TAB PO SCH (08:33)
[2019-07-03] MEDS: Multivit, Therapeutic 1 TAB PO SCH (08:33)
[2019-07-03] MEDS: Aspirin 325 mg Enteric Coated Tablet PO SCH (08:33)
[2019-07-03] MEDS: Ubidecarenone 50 MG CAP PO SCH (08:33)
[2019-07-03] MEDS: Atenolol 50 MG TAB PO SCH (08:33)
[2019-07-03] MEDS: Lysine 500 MG TAB PO SCH (08:34)
[2019-07-03] MEDS: Ascorbic Acid 500 mg Chewable Tablet PO SCH (08:34)
[2019-07-03] MEDS: Gabapentin 300 MG CAP PO SCH ×2 (08:34→15:22)
[2019-07-03] MEDS: DorzolamidE/Timolol 2%/0.5% Ophth Soln 10 ml Bottle EA EYE SCH (08:34)
[2019-07-03] MEDS: Docusate 100 MG CAP PO SCH (08:34)
[2019-07-03] MEDS: Niacin 500 MG TAB PO SCH ×2 (08:34→13:07)
[2019-07-03] MEDS: SAW PALMETTO PO SCH (08:36)
[2019-07-03 12:02] VITALS: BP 105/65
--- NOTE | 2019-07-04 03:16 | DIS ---
DATE OF ADMISSION: 06/22/2019 DATE OF DISCHARGE: 07/03/2019 PRINCIPAL DIAGNOSIS: Coronary artery disease. PROCEDURES PERFORMED: Cardiac catheterization, 06/22/2019, redo coronary artery bypass grafting x3 with right internal mammary artery to the PDA, reverse greater saphenous vein graft from the aorta to the obtuse marginal and from the obtuse marginal graft to the diagonal, 06/24/2019. HISTORY OF PRESENT ILLNESS AND HOSPITAL COURSE: The patient is a 73-year-old so-called borderline diabetic man, who is about 20 years status post coronary artery bypass grafting utilizing a left internal mammary artery graft for his LAD and vein graft for the balance. He recently started back his bicycling regimen after a hiatus due to inclement weather and he felt chest tightness just a few miles into his ride. While his resting nuclear images were unremarkable, his stress images were essentially uninterpretable prompting cardiac catheterization that demonstrated patency of his mammary grafts to his LAD, but occlusion of his vein grafts with severe underlying disease. He has some mild renal insufficiency. His sugars were somewhat mildly elevated. His hemoglobin A1c proved to be 7.1. He was hydrated and his bypass surgery delayed briefly following his cardiac catheterization and on 06/24, he underwent redo coronary artery bypass grafting. He was extubated the night of surgery and weaned off his pressors the following morning and was started on half his normal dose of atenolol the following day. It was increased to his home dose of 50 mg b.i.d. on postoperative day 2. At the same time, diuresis was initiated. Other than some blood sugars that stayed around 200 and some low-grade fevers that had no identifiable cause and resolved, he had an uneventful postoperative course. As he lives alone, he and his extended family requested evaluation for inpatient rehab until he is ready to go home. The majority of his stay beyond postoperative day 3 related to awaiting rehab evaluation and bed availability. Job ID: [id number]
[2019-07-07 10:46] LABS: ALV-art Gradient 219.375 (0-20); Puncture Site ALINE
== END 2019-07-03 16:45 | DRG 234 ==
LOC: CCL 05:58 → 2NO 08:01 → CCU 06-24 07:44 → 2NO 06-26 20:17
PROVIDERS: ADMIT Internal Medicine Cardiovascular Disease; ATTEND Internal Medicine Cardiovascular Disease
PROC: 4A023N7 Measurement of Cardiac Sampling and Pressure, Left Heart, Percutaneous Approach (ICD-10-PCS; 2019-06-22)
PROC: 5A1221Z Performance of Cardiac Output, Continuous (ICD-10-PCS; 2019-06-22)
PROC: B2151ZZ Fluoroscopy of Left Heart using Low Osmolar Contrast (ICD-10-PCS; 2019-06-22)
PROC: B2111ZZ Fluoroscopy of Multiple Coronary Arteries using Low Osmolar Contrast (ICD-10-PCS; 2019-06-22)
PROC: B2181ZZ Fluoroscopy of Left Internal Mammary Bypass Graft using Low Osmolar Contrast (ICD-10-PCS; 2019-06-22)
PROC: 02100Z8 Bypass Coronary Artery, One Artery from Right Internal Mammary, Open Approach (ICD-10-PCS; principal; 2019-06-24)
PROC: 021009W Bypass Coronary Artery, One Artery from Aorta with Autologous Venous Tissue, Open Approach (ICD-10-PCS; 2019-06-24)
PROC: 02100Z3 Bypass Coronary Artery, One Artery from Coronary Artery, Open Approach (ICD-10-PCS; 2019-06-24)
PROC: 06BQ4ZZ Excision of Left Saphenous Vein, Percutaneous Endoscopic Approach (ICD-10-PCS; 2019-06-24)
PROC: 02HV33Z Insertion of Infusion Device into Superior Vena Cava, Percutaneous Approach (ICD-10-PCS; 2019-06-24)
PROC: B518YZA Fluoroscopy of Superior Vena Cava using Other Contrast, Guidance (ICD-10-PCS; 2019-06-24)
DX: I25.810 Atherosclerosis of coronary artery bypass graft(s) without angina pectoris (principal); J93.9 Pneumothorax, unspecified; E78.5 Hyperlipidemia, unspecified; E78.00 Pure hypercholesterolemia, unspecified; E78.1 Pure hyperglyceridemia; M45.9 Ankylosing spondylitis of unspecified sites in spine; I10 Essential (primary) hypertension; G47.30 Sleep apnea, unspecified; E66.01 Morbid (severe) obesity due to excess calories; N28.9 Disorder of kidney and ureter, unspecified; R50.9 Fever, unspecified; E11.9 Type 2 diabetes mellitus without complications; Z88.2 Allergy status to sulfonamides; Z88.0 Allergy status to penicillin; Z95.1 Presence of aortocoronary bypass graft; Z79.82 Long term (current) use of aspirin; Z79.899 Other long term (current) drug therapy; Z87.891 Personal history of nicotine dependence; Z68.33 Body mass index [BMI] 33.0-33.9, adult
CPT/HCPCS: 36415; 36416; 36430; 71045; 71046; 80048; 80061; 81001; 82805; 83036; 85025; 85347; 85610; 85730; 86850; 86900; 86901; 87070; 87077; 87086; 87186; 87205; 93005; 93010; 93459; 93567; 93798; 94002; 94150; 99152; C1769; J1265; J1642; J1644; J1815; J1956; J2001; J2150; J2250; J2370; J2405; J2440; J2704; J2720; J3010; J3370; J3475; J3480; J3490; J7050; J7070; P9016; P9035; P9045; P9059; Q9967; S0017; S0028

== ENCOUNTER 2022-04-09 13:12 | Outpatient (CLI) | payer MEDICARE, MEDICAID | END 2022-04-09 13:13 | disposition home or self-care (01) | LOC: BICRAD 13:12 | PROVIDERS: ATTEND Podiatrist | DX: L89.90 Pressure ulcer of unspecified site, unspecified stage (principal) ==

== ENCOUNTER 2025-10-05 15:45 | Inpatient (IN) | payer OTHER ==
[2025-10-05 18:07] LABS: #Basophils 0.04 10x3/uL (0.0-0.2); #Eosinophils 0.07 10x3/uL (0.0-0.7); #Monocytes 1.27 10x3/uL (0.11-0.59); #Neutrophils 16.13 10x3/uL (1.40-6.50); %Basophils 0.2 % (0.0-1.0); %Eosinophils 0.4 % (0.0-10.0); %Lymphocytes 6.7 % (21.0-51.0); %Monocytes 6.7 % (0.0-10.0); %Neutrophils 85.2 % (42.0-75.0); Hematocrit 46.1 % (42.0-52.0); Hemoglobin 15.7 g/dL (14.0-18.0); Mean Corpuscular Hemoglobin 32.0 pg (27.0-31.0); Mean Corpuscular Volume 93.9 fL (78.0-98.0); Platelet Count 137 10x3/uL (130-400); Red Blood Cell (RBC) Count 4.91 mill/uL (4.70-6.10); White Blood Cell (WBC) Count 18.92 10x3/uL (4.8-10.8)
[2025-10-05] MEDS ORDERED: Cefepime 2 GM VIAL ONE (18:16)
[2025-10-05 18:21] LABS: ALT (SGPT) 26 U/L (Less than 45); AST (SGOT) 37 U/L (11-34); Albumin 3.4 g/dL (3.1-4.5); Alkaline Phosphatase 53 U/L (40-110); Anion Gap 15 mmol/L (10-20); BUN (Urea Nitrogen) 21 mg/dL (8.4-25.7); Bilirubin, Total 2.4 mg/dL (0.3-1.2); Calc. Creatinine Clearance 0 mL/min (70-130); Calcium 8.4 mg/dL (7.8-10.44); Carbon Dioxide 23 mmol/L (23-31); Chloride 102 mmol/L (98-107); Globulin 2.4 g/dL (2.4-3.5); Glucose 129 mg/dL (83-110); Potassium 4.3 mmol/L (3.5-5.1); Sodium 136 mmol/L (136-145)
[2025-10-05] MEDS ORDERED: Acetaminophen 500 MG TAB ONE (18:27)
[2025-10-05] MEDS ORDERED: Enoxaparin 60 MG (0.6 mL) SYRINGE ONE (19:17)
[2025-10-05] MEDS ORDERED: Glucagon 1 MG/ML KIT IM PRN (20:26)
[2025-10-05] MEDS ORDERED: Dextrose 50% Abboject 50 ML SYRINGE SLOW IVP PRN (20:26)
[2025-10-05 20:35] LABS: Magnesium 2.0 mg/dL (1.6-2.6)
[2025-10-05 22:29] VITALS: BMI 34.6
[2025-10-05] MEDS: Atenolol 50 MG TAB PO SCH (23:13)
[2025-10-05] MEDS: Vancomycin (BATCH) 2.5 GM in Premix 1 BAG IVPB SCH (23:23)
[2025-10-06 04:48] LABS: #Basophils 0.03 10x3/uL (0.0-0.2); #Eosinophils Less than 0.03 10x3/uL (0.0-0.7); #Monocytes 1.21 10x3/uL (0.11-0.59); #Neutrophils 12.90 10x3/uL (1.40-6.50); %Basophils 0.2 % (0.0-1.0); %Eosinophils 0.1 % (0.0-10.0); %Lymphocytes 8.3 % (21.0-51.0); %Monocytes 7.8 % (0.0-10.0); %Neutrophils 83.1 % (42.0-75.0); Hematocrit 44.8 % (42.0-52.0); Hemoglobin 14.6 g/dL (14.0-18.0); Mean Corpuscular Hemoglobin 31.4 pg (27.0-31.0); Mean Corpuscular Volume 96.3 fL (78.0-98.0); Platelet Count 136 10x3/uL (130-400); Red Blood Cell (RBC) Count 4.65 mill/uL (4.70-6.10); White Blood Cell (WBC) Count 15.51 10x3/uL (4.8-10.8)
[2025-10-06 04:58] LABS: ALT (SGPT) 22 U/L (Less than 45); AST (SGOT) 35 U/L (11-34); Albumin 3.2 g/dL (3.1-4.5); Alkaline Phosphatase 47 U/L (40-110); Bilirubin, Direct 0.8 mg/dL (0.1-0.3); Bilirubin, Total 1.7 mg/dL (0.3-1.2)
[2025-10-06 04:59] LABS: Anion Gap 16 mmol/L (10-20); BUN (Urea Nitrogen) 25 mg/dL (8.4-25.7); Calc. Creatinine Clearance 88 mL/min (70-130); Calcium 8.4 mg/dL (7.8-10.44); Carbon Dioxide 21 mmol/L (23-31); Chloride 105 mmol/L (98-107); Glucose 97 mg/dL (83-110); Magnesium 2.0 mg/dL (1.6-2.6); Potassium 3.9 mmol/L (3.5-5.1); Sodium 138 mmol/L (136-145)
[2025-10-06 05:00] LABS: Vancomycin, Random 12.9 ug/mL (See Comment)
[2025-10-06] MEDS ORDERED: Furosemide 20 MG (2 mL) VIAL SLOW IVP SCH (06:00)
[2025-10-06 06:06] LABS: Bacteria/HPF None Seen HPF (None Seen); CAUTI Indications for Culture Alt mental st,lethar; Glucose, Urine (Dipstick) Greater than 1000 mg/dL (Negative); Leukocyte Negative Leu/uL (Negative); Protein, Urine (Dipstick) 30 mg/dL (Neg-Trace); RBC/HPF 0-3 HPF (0-3); Specific Gravity, Urine 1.029 (1.002-1.036); WBC/HPF 0-3 HPF (0-3)
[2025-10-06 06:07] LABS: Urine Culture Reflex No No
[2025-10-06] MEDS: Atenolol 50 MG TAB PO SCH (08:46)
[2025-10-06] MEDS: Gabapentin 400 MG CAP PO SCH (08:46)
[2025-10-06] MEDS: Ezetimibe 10 MG TAB PO SCH (08:46)
[2025-10-06] MEDS: Furosemide 20 MG (2 mL) VIAL SLOW IVP SCH (08:47)
[2025-10-06] MEDS: Enoxaparin 80 MG (0.8 mL) SYRINGE SC SCH (08:47)
[2025-10-06] MEDS: VANCOMYCIN 1.75 GM/350 ML Premix BAG IVPB SCH ×2 (15:42→15:43)
[2025-10-06] MEDS: Losartan 25 MG TAB PO SCH (15:43)
[2025-10-06] MEDS ORDERED: VANCOMYCIN 1.75 GM/350 ML Premix BAG IVPB SCH (19:00)
[2025-10-06] MEDS: Apixaban 5 MG TAB PO SCH (22:31)
[2025-10-06] MEDS: Dorzolamide HCl 2% Ophth (10 mL) Bottle EA EYE SCH (22:35)
[2025-10-06] MEDS: Rosuvastatin 20 MG TAB PO SCH (22:53)
[2025-10-06] MEDS: Brimonidine Tartrate 0.2% Ophth Soln 5 ml Bottle EA EYE SCH (23:00)
[2025-10-07 05:25] LABS: #Basophils 0.03 10x3/uL (0.0-0.2); #Eosinophils 0.06 10x3/uL (0.0-0.7); #Monocytes 1.42 10x3/uL (0.11-0.59); #Neutrophils 10.17 10x3/uL (1.40-6.50); %Basophils 0.2 % (0.0-1.0); %Eosinophils 0.5 % (0.0-10.0); %Lymphocytes 11.4 % (21.0-51.0); %Monocytes 10.7 % (0.0-10.0); %Neutrophils 76.8 % (42.0-75.0); Hematocrit 46.2 % (42.0-52.0); Hemoglobin 15.6 g/dL (14.0-18.0); Mean Corpuscular Hemoglobin 32.0 pg (27.0-31.0); Mean Corpuscular Volume 94.7 fL (78.0-98.0); Platelet Count 158 10x3/uL (130-400); Red Blood Cell (RBC) Count 4.88 mill/uL (4.70-6.10); White Blood Cell (WBC) Count 13.24 10x3/uL (4.8-10.8)
[2025-10-07 05:35] LABS: Albumin (w/Testosterone Panel) 3.2 g/dL
[2025-10-07 05:41] LABS: ALT (SGPT) 25 U/L (Less than 45); AST (SGOT) 39 U/L (11-34); Albumin 3.2 g/dL (3.1-4.5); Alkaline Phosphatase 56 U/L (40-110); Anion Gap 9 mmol/L (10-20); BUN (Urea Nitrogen) 25 mg/dL (8.4-25.7); Bilirubin, Total 1.2 mg/dL (0.3-1.2); Calc. Creatinine Clearance 89 mL/min (70-130); Calcium 8.6 mg/dL (7.8-10.44); Carbon Dioxide 25 mmol/L (23-31); Chloride 105 mmol/L (98-107); Globulin 3.1 g/dL (2.4-3.5); Glucose 106 mg/dL (83-110); Magnesium 2.3 mg/dL (1.6-2.6); Potassium 4.1 mmol/L (3.5-5.1); Sodium 135 mmol/L (136-145)
[2025-10-07 06:03] LABS: Testosterone, Free 166.5 pg/mL (47-244)
[2025-10-07] MEDS: Losartan 25 MG TAB PO SCH (10:30)
[2025-10-07] MEDS: Furosemide 20 MG TAB PO SCH (10:31)
[2025-10-07] MEDS: VANCOMYCIN 1.75 GM/350 ML Premix BAG IVPB SCH (10:33)
[2025-10-07] MEDS: Ondansetron PF 4 MG/2 ML Vial IVP PRN (11:57)
[2025-10-07] MEDS: Pantoprazole 40 MG VIAL IVP SCH ×2 (15:55→20:36)
[2025-10-07 16:11] LABS: #Basophils 0.03 10x3/uL (0.0-0.2); #Eosinophils 0.06 10x3/uL (0.0-0.7); #Monocytes 1.59 10x3/uL (0.11-0.59); #Neutrophils 10.67 10x3/uL (1.40-6.50); %Basophils 0.2 % (0.0-1.0); %Eosinophils 0.4 % (0.0-10.0); %Lymphocytes 12.2 % (21.0-51.0); %Monocytes 11.3 % (0.0-10.0); %Neutrophils 75.5 % (42.0-75.0); Hematocrit 36.3 % (42.0-52.0); Hemoglobin 12.1 g/dL (14.0-18.0); Mean Corpuscular Hemoglobin 32.3 pg (27.0-31.0); Mean Corpuscular Volume 96.8 fL (78.0-98.0); Platelet Count 190 10x3/uL (130-400); Red Blood Cell (RBC) Count 3.75 mill/uL (4.70-6.10); White Blood Cell (WBC) Count 14.13 10x3/uL (4.8-10.8)
[2025-10-07 19:54] LABS: #Basophils 0.03 10x3/uL (0.0-0.2); #Eosinophils 0.06 10x3/uL (0.0-0.7); #Monocytes 1.61 10x3/uL (0.11-0.59); #Neutrophils 12.16 10x3/uL (1.40-6.50); %Basophils 0.2 % (0.0-1.0); %Eosinophils 0.4 % (0.0-10.0); %Lymphocytes 12.6 % (21.0-51.0); %Monocytes 10.1 % (0.0-10.0); %Neutrophils 76.0 % (42.0-75.0); Hematocrit 32.1 % (42.0-52.0); Hemoglobin 10.4 g/dL (14.0-18.0); Mean Corpuscular Hemoglobin 31.9 pg (27.0-31.0); Mean Corpuscular Volume 98.5 fL (78.0-98.0); Platelet Count 193 10x3/uL (130-400); Red Blood Cell (RBC) Count 3.26 mill/uL (4.70-6.10); White Blood Cell (WBC) Count 15.98 10x3/uL (4.8-10.8)
[2025-10-07] MEDS: Octreotide Acetate 1,250 MCG in Sodium Chloride 0.9% 250 ML 250 ML IVPB SCH (22:12)
[2025-10-08 01:17] LABS: Hematocrit 29.6 % (42.0-52.0); Hemoglobin 9.6 g/dL (14.0-18.0)
[2025-10-08] MEDS: Melatonin 3 MG TAB PO SCH (02:12)
[2025-10-08 05:37] LABS: #Basophils 0.04 10x3/uL (0.0-0.2); #Eosinophils 0.04 10x3/uL (0.0-0.7); #Monocytes 1.59 10x3/uL (0.11-0.59); #Neutrophils 12.08 10x3/uL (1.40-6.50); %Basophils 0.3 % (0.0-1.0); %Eosinophils 0.3 % (0.0-10.0); %Lymphocytes 12.6 % (21.0-51.0); %Monocytes 10.0 % (0.0-10.0); %Neutrophils 76.1 % (42.0-75.0); Hematocrit 28.6 % (42.0-52.0); Hemoglobin 9.2 g/dL (14.0-18.0); Mean Corpuscular Hemoglobin 31.6 pg (27.0-31.0); Mean Corpuscular Volume 98.3 fL (78.0-98.0); Platelet Count 179 10x3/uL (130-400); Red Blood Cell (RBC) Count 2.91 mill/uL (4.70-6.10); White Blood Cell (WBC) Count 15.85 10x3/uL (4.8-10.8)
[2025-10-08 05:59] LABS: ALT (SGPT) 18 U/L (Less than 45); AST (SGOT) 22 U/L (11-34); Albumin 2.5 g/dL (3.1-4.5); Alkaline Phosphatase 38 U/L (40-110); Anion Gap 4 mmol/L (10-20); BUN (Urea Nitrogen) 66 mg/dL (8.4-25.7); Bilirubin, Total 0.7 mg/dL (0.3-1.2); Calc. Creatinine Clearance 73 mL/min (70-130); Calcium 7.7 mg/dL (7.8-10.44); Carbon Dioxide 22 mmol/L (23-31); Chloride 115 mmol/L (98-107); Globulin 2.3 g/dL (2.4-3.5); Glucose 169 mg/dL (83-110); Magnesium 2.3 mg/dL (1.6-2.6); Potassium 4.6 mmol/L (3.5-5.1); Sodium 136 mmol/L (136-145)
[2025-10-08 06:02] LABS: Vancomycin, Random 13.7 ug/mL (See Comment)
[2025-10-08] MEDS ORDERED: Cefepime 2 GM VIAL ONE (08:38)
[2025-10-08] MEDS ORDERED: PROPOFOL 20 ML ONE ×2 (08:54→10:02)
[2025-10-08] MEDS ORDERED: PROPOFOL 200 MG/20 ML VIAL ONE (09:44)
[2025-10-08 18:11] LABS: Hematocrit 29.0 % (42.0-52.0); Hemoglobin 9.4 g/dL (14.0-18.0); Platelet Count 197 10x3/uL (130-400)
[2025-10-09] MEDS: Melatonin 3 MG TAB PO PRN (01:30)
[2025-10-09 05:00] LABS: Hematocrit 28.3 % (42.0-52.0); Hemoglobin 9.5 g/dL (14.0-18.0); Platelet Count 201 10x3/uL (130-400)
[2025-10-09 05:51] LABS: ALT (SGPT) 16 U/L (Less than 45); AST (SGOT) 21 U/L (11-34); Albumin 2.7 g/dL (3.1-4.5); Alkaline Phosphatase 37 U/L (40-110); Anion Gap 4 mmol/L (10-20); BUN (Urea Nitrogen) 43 mg/dL (8.4-25.7); Bilirubin, Total 0.7 mg/dL (0.3-1.2); Calc. Creatinine Clearance 91 mL/min (70-130); Calcium 7.8 mg/dL (7.8-10.44); Carbon Dioxide 21 mmol/L (23-31); Chloride 118 mmol/L (98-107); Globulin 2.5 g/dL (2.4-3.5); Glucose 127 mg/dL (83-110); Potassium 4.1 mmol/L (3.5-5.1); Sodium 139 mmol/L (136-145)
[2025-10-09] MEDS: Artificial Tear Ophth Sol 15 ML BOT EA EYE PRN (10:03)
[2025-10-09] MEDS ORDERED: Vancomycin 1.5 GM / NS 500 ML VIAL-2-BAG IVPB SCH (11:00)
[2025-10-09] MEDS: Cephalexin 250 MG CAP PO SCH (11:51)
[2025-10-10 05:50] LABS: ALT (SGPT) 16 U/L (Less than 45); AST (SGOT) 22 U/L (11-34); Albumin 2.7 g/dL (3.1-4.5); Alkaline Phosphatase 43 U/L (40-110); Anion Gap 11 mmol/L (10-20); BUN (Urea Nitrogen) 26 mg/dL (8.4-25.7); Bilirubin, Total 0.5 mg/dL (0.3-1.2); Calc. Creatinine Clearance 73 mL/min (70-130); Calcium 7.9 mg/dL (7.8-10.44); Carbon Dioxide 24 mmol/L (23-31); Chloride 110 mmol/L (98-107); Globulin 2.4 g/dL (2.4-3.5); Glucose 152 mg/dL (83-110); Potassium 3.7 mmol/L (3.5-5.1); Sodium 141 mmol/L (136-145)
[2025-10-10 06:03] LABS: Hematocrit 25.9 % (42.0-52.0); Hemoglobin 8.2 g/dL (14.0-18.0); Mean Corpuscular Hemoglobin 31.5 pg (27.0-31.0); Mean Corpuscular Volume 99.6 fL (78.0-98.0); Platelet Count 252 10x3/uL (130-400); Red Blood Cell (RBC) Count 2.60 mill/uL (4.70-6.10); White Blood Cell (WBC) Count 13.36 10x3/uL (4.8-10.8)
[2025-10-10 07:15] LABS: Macrocytosis SLIGHT = 6-15 cells HPF (0-5); Nucleated RBC (Manual Ct) 1 % (0); Platelet Adequacy Comment Platelets Normal; Polychromasia SLIGHT = 2-3 cells HPF (0-2); Smudge Cells 6.0 %
[2025-10-10 12:42] LABS: Hematocrit 27.0 % (42.0-52.0); Hemoglobin 8.4 g/dL (14.0-18.0); Mean Corpuscular Hemoglobin 31.3 pg (27.0-31.0); Mean Corpuscular Volume 100.7 fL (78.0-98.0); Platelet Count 281 10x3/uL (130-400); Red Blood Cell (RBC) Count 2.68 mill/uL (4.70-6.10); White Blood Cell (WBC) Count 13.12 10x3/uL (4.8-10.8)
[2025-10-10 13:41] LABS: Macrocytosis SLIGHT = 6-15 cells HPF (0-5); Platelet Adequacy Comment Platelets Normal; Polychromasia SLIGHT = 2-3 cells HPF (0-2); Smudge Cells 9.0 %
[2025-10-11 06:04] LABS: Hematocrit 27.3 % (42.0-52.0); Hemoglobin 8.9 g/dL (14.0-18.0); Mean Corpuscular Hemoglobin 32.7 pg (27.0-31.0); Mean Corpuscular Volume 100.4 fL (78.0-98.0); Platelet Count 307 10x3/uL (130-400); Red Blood Cell (RBC) Count 2.72 mill/uL (4.70-6.10); White Blood Cell (WBC) Count 11.80 10x3/uL (4.8-10.8)
[2025-10-11 06:21] LABS: ALT (SGPT) 16 U/L (Less than 45); AST (SGOT) 21 U/L (11-34); Albumin 2.8 g/dL (3.1-4.5); Alkaline Phosphatase 43 U/L (40-110); Anion Gap 6 mmol/L (10-20); BUN (Urea Nitrogen) 16 mg/dL (8.4-25.7); Bilirubin, Total 0.6 mg/dL (0.3-1.2); Calc. Creatinine Clearance 110 mL/min (70-130); Calcium 7.7 mg/dL (7.8-10.44); Carbon Dioxide 22 mmol/L (23-31); Chloride 115 mmol/L (98-107); Globulin 2.6 g/dL (2.4-3.5); Glucose 126 mg/dL (83-110); Potassium 3.6 mmol/L (3.5-5.1); Sodium 139 mmol/L (136-145)
[2025-10-11 06:32] LABS: Macrocytosis SLIGHT = 6-15 cells HPF (0-5); Nucleated RBC (Manual Ct) 1 % (0); Platelet Adequacy Comment Platelets Normal; Polychromasia SLIGHT = 2-3 cells HPF (0-2); Smudge Cells 12.9 %
[2025-10-12 05:26] LABS: ALT (SGPT) 14 U/L (Less than 45); AST (SGOT) 19 U/L (11-34); Albumin 2.7 g/dL (3.1-4.5); Alkaline Phosphatase 43 U/L (40-110); Anion Gap 9 mmol/L (10-20); BUN (Urea Nitrogen) 14 mg/dL (8.4-25.7); Bilirubin, Total 0.6 mg/dL (0.3-1.2); Calc. Creatinine Clearance 105 mL/min (70-130); Calcium 7.8 mg/dL (7.8-10.44); Carbon Dioxide 24 mmol/L (23-31); Chloride 112 mmol/L (98-107); Globulin 2.6 g/dL (2.4-3.5); Glucose 137 mg/dL (83-110); Potassium 3.6 mmol/L (3.5-5.1); Sodium 141 mmol/L (136-145)
[2025-10-12 05:32] LABS: Hematocrit 26.7 % (42.0-52.0); Hemoglobin 8.6 g/dL (14.0-18.0); Mean Corpuscular Hemoglobin 31.7 pg (27.0-31.0); Mean Corpuscular Volume 98.5 fL (78.0-98.0); Platelet Count 337 10x3/uL (130-400); Red Blood Cell (RBC) Count 2.71 mill/uL (4.70-6.10); White Blood Cell (WBC) Count 10.47 10x3/uL (4.8-10.8)
[2025-10-12 07:01] LABS: Anisocytosis SLIGHT = 6-15 cells HPF (0-5); Macrocytosis SLIGHT = 6-15 cells HPF (0-5); Nucleated RBC (Manual Ct) 1 % (0); Platelet Adequacy Comment Platelets Normal; Polychromasia SLIGHT = 2-3 cells HPF (0-2); Smudge Cells 9.0 %
[2025-10-12] MEDS ORDERED: Apixaban 5 MG TAB PO SCH ×2 (09:00→21:00)
[2025-10-12] MEDS: Potassium Bicarbonate/Cit Ac 20 MEQ TAB PO SCH ×2 (10:50→11:56)
[2025-10-12] MEDS: Apixaban 5 MG TAB PO SCH (11:58)
[2025-10-13 04:49] LABS: ALT (SGPT) 15 U/L (Less than 45); AST (SGOT) 20 U/L (11-34); Albumin 2.8 g/dL (3.1-4.5); Alkaline Phosphatase 47 U/L (40-110); Anion Gap 13 mmol/L (10-20); BUN (Urea Nitrogen) 13 mg/dL (8.4-25.7); Bilirubin, Total 0.7 mg/dL (0.3-1.2); Calc. Creatinine Clearance 95 mL/min (70-130); Calcium 8.2 mg/dL (7.8-10.44); Carbon Dioxide 25 mmol/L (23-31); Chloride 108 mmol/L (98-107); Globulin 2.9 g/dL (2.4-3.5); Glucose 130 mg/dL (83-110); Potassium 3.9 mmol/L (3.5-5.1); Sodium 142 mmol/L (136-145)
[2025-10-13 04:54] LABS: Hematocrit 28.3 % (42.0-52.0); Hemoglobin 9.0 g/dL (14.0-18.0); Mean Corpuscular Hemoglobin 31.5 pg (27.0-31.0); Mean Corpuscular Volume 99.0 fL (78.0-98.0); Platelet Count 381 10x3/uL (130-400); Red Blood Cell (RBC) Count 2.86 mill/uL (4.70-6.10); White Blood Cell (WBC) Count 11.61 10x3/uL (4.8-10.8)
[2025-10-13 05:32] LABS: Nucleated RBC (Manual Ct) 2 % (0); Platelet Adequacy Comment Platelets Normal; Polychromasia SLIGHT = 2-3 cells HPF (0-2); Smudge Cells 4.0 %
[2025-10-13] MEDS ORDERED: LevoFLOXacin D5W 500 mg (100 mL) BAG ONE (06:23)
[2025-10-13] MEDS ORDERED: Lidocaine 1% (PF) 30 ML VIAL ONE ×2 (06:25→08:40)
[2025-10-13] MEDS ORDERED: Iopamidol 370 76% 100 ML VIAL ONE (11:47)
[2025-10-13] MEDS: Amiodarone 150 MG, Admixture Fee 1 EACH in Dextrose 5% in Water 100 ML IVPB SCH (21:08)
[2025-10-14 04:51] LABS: #Basophils 0.04 10x3/uL (0.0-0.2); #Eosinophils 0.15 10x3/uL (0.0-0.7); #Monocytes 1.26 10x3/uL (0.11-0.59); #Neutrophils 9.83 10x3/uL (1.40-6.50); %Basophils 0.3 % (0.0-1.0); %Eosinophils 1.1 % (0.0-10.0); %Lymphocytes 12.7 % (21.0-51.0); %Monocytes 9.5 % (0.0-10.0); %Neutrophils 74.1 % (42.0-75.0); Hematocrit 31.8 % (42.0-52.0); Hemoglobin 9.9 g/dL (14.0-18.0); Mean Corpuscular Hemoglobin 30.7 pg (27.0-31.0); Mean Corpuscular Volume 98.5 fL (78.0-98.0); Platelet Count 390 10x3/uL (130-400); Red Blood Cell (RBC) Count 3.23 mill/uL (4.70-6.10); White Blood Cell (WBC) Count 13.28 10x3/uL (4.8-10.8)
[2025-10-14 05:13] LABS: ALT (SGPT) 11 U/L (Less than 45); AST (SGOT) 20 U/L (11-34); Albumin 3.0 g/dL (3.1-4.5); Alkaline Phosphatase 48 U/L (40-110); Anion Gap 12 mmol/L (10-20); BUN (Urea Nitrogen) 12 mg/dL (8.4-25.7); Bilirubin, Direct 0.5 mg/dL (0.1-0.3); Bilirubin, Total 0.9 mg/dL (0.3-1.2); Calc. Creatinine Clearance 94 mL/min (70-130); Calcium 8.2 mg/dL (7.8-10.44); Carbon Dioxide 24 mmol/L (23-31); Chloride 106 mmol/L (98-107); Globulin 3.1 g/dL (2.4-3.5); Glucose 139 mg/dL (83-110); Magnesium 2.1 mg/dL (1.6-2.6); Potassium 4.0 mmol/L (3.5-5.1); Sodium 138 mmol/L (136-145)
[2025-10-15 04:38] LABS: #Basophils 0.04 10x3/uL (0.0-0.2); #Eosinophils 0.08 10x3/uL (0.0-0.7); #Monocytes 1.98 10x3/uL (0.11-0.59); #Neutrophils 13.15 10x3/uL (1.40-6.50); %Basophils 0.2 % (0.0-1.0); %Eosinophils 0.4 % (0.0-10.0); %Lymphocytes 13.6 % (21.0-51.0); %Monocytes 11.1 % (0.0-10.0); %Neutrophils 73.4 % (42.0-75.0); Hematocrit 34.2 % (42.0-52.0); Hemoglobin 10.7 g/dL (14.0-18.0); Mean Corpuscular Hemoglobin 30.7 pg (27.0-31.0); Mean Corpuscular Volume 98.3 fL (78.0-98.0); Platelet Count 414 10x3/uL (130-400); Red Blood Cell (RBC) Count 3.48 mill/uL (4.70-6.10); White Blood Cell (WBC) Count 17.91 10x3/uL (4.8-10.8)
[2025-10-15 04:46] LABS: Anion Gap 12 mmol/L (10-20); BUN (Urea Nitrogen) 14 mg/dL (8.4-25.7); Calc. Creatinine Clearance 84 mL/min (70-130); Calcium 9.1 mg/dL (7.8-10.44); Carbon Dioxide 26 mmol/L (23-31); Chloride 104 mmol/L (98-107); Glucose 152 mg/dL (83-110); Potassium 4.3 mmol/L (3.5-5.1); Sodium 138 mmol/L (136-145)
[2025-10-15] MEDS ORDERED: PHENYLEPHRINE-NS 100 MCG/ML 10 ML SYRINGE ONE (11:54)
[2025-10-15] MEDS ORDERED: Lidocaine 1% (PF) 30 ML VIAL ONE (11:54)
[2025-10-15] MEDS ORDERED: PROPOFOL 0 ML ONE (11:54)
[2025-10-15] MEDS: Apixaban 5 MG TAB PO SCH (17:22)
[2025-10-15] MEDS: Amiodarone 200 MG TAB PO SCH (17:23)
[2025-10-15] MEDS: Pantoprazole 40 MG DR.TAB PO SCH (20:42)
[2025-10-15] MEDS ORDERED: Amiodarone 200 MG TAB PO SCH (21:00)
[2025-10-15] MEDS ORDERED: Apixaban 5 MG TAB PO SCH ×2 (21:00)
[2025-10-15] MEDS: Acetaminophen 325 MG TAB PO PRN (23:36)
[2025-10-16] MEDS: Vancomycin (BATCH) 2.5 GM in Premix 1 BAG IVPB SCH (03:32)
[2025-10-16 05:03] LABS: Bacteria/HPF None Seen HPF (None Seen); Glucose, Urine (Dipstick) Greater than 1000 mg/dL (Negative); Leukocyte Negative Leu/uL (Negative); Protein, Urine (Dipstick) 30 mg/dL (Neg-Trace); RBC/HPF 0-3 HPF (0-3); Specific Gravity, Urine 1.013 (1.002-1.036); WBC/HPF 0-3 HPF (0-3)
[2025-10-16 05:21] LABS: #Basophils 0.03 10x3/uL (0.0-0.2); #Eosinophils 0.04 10x3/uL (0.0-0.7); #Monocytes 2.35 10x3/uL (0.11-0.59); #Neutrophils 15.22 10x3/uL (1.40-6.50); %Basophils 0.2 % (0.0-1.0); %Eosinophils 0.2 % (0.0-10.0); %Lymphocytes 10.3 % (21.0-51.0); %Monocytes 11.8 % (0.0-10.0); %Neutrophils 76.6 % (42.0-75.0); Hematocrit 29.2 % (42.0-52.0); Hemoglobin 9.5 g/dL (14.0-18.0); Mean Corpuscular Hemoglobin 31.0 pg (27.0-31.0); Mean Corpuscular Volume 95.4 fL (78.0-98.0); Platelet Count 360 10x3/uL (130-400); Red Blood Cell (RBC) Count 3.06 mill/uL (4.70-6.10); White Blood Cell (WBC) Count 19.86 10x3/uL (4.8-10.8)
[2025-10-16 05:37] LABS: Anion Gap 11 mmol/L (10-20); BUN (Urea Nitrogen) 15 mg/dL (8.4-25.7); Calc. Creatinine Clearance 78 mL/min (70-130); Calcium 8.2 mg/dL (7.8-10.44); Carbon Dioxide 23 mmol/L (23-31); Chloride 106 mmol/L (98-107); Glucose 178 mg/dL (83-110); Potassium 4.0 mmol/L (3.5-5.1); Sodium 136 mmol/L (136-145)
[2025-10-16] MEDS: Apixaban 5 MG TAB PO SCH (08:46)
[2025-10-16] MEDS: Amiodarone 200 MG TAB PO SCH (08:46)
[2025-10-16 10:02] LABS: Influenza A by NAA Not Detected (NotDetected); Influenza B by NAA Not Detected (NotDetected); RSV by NAA Not Detected (NotDetected); SARS-CoV-2 NAA Rapid Test Not Detected (NotDetected)
[2025-10-16] MEDS: VANCOMYCIN 1.75 GM/350 ML Premix BAG IVPB SCH (23:47)
[2025-10-17 05:28] LABS: #Basophils 0.03 10x3/uL (0.0-0.2); #Eosinophils 0.15 10x3/uL (0.0-0.7); #Monocytes 1.67 10x3/uL (0.11-0.59); #Neutrophils 11.13 10x3/uL (1.40-6.50); %Basophils 0.2 % (0.0-1.0); %Eosinophils 1.0 % (0.0-10.0); %Lymphocytes 10.3 % (21.0-51.0); %Monocytes 11.4 % (0.0-10.0); %Neutrophils 76.3 % (42.0-75.0); Hematocrit 30.8 % (42.0-52.0); Hemoglobin 9.6 g/dL (14.0-18.0); Mean Corpuscular Hemoglobin 29.9 pg (27.0-31.0); Mean Corpuscular Volume 96.0 fL (78.0-98.0); Platelet Count 358 10x3/uL (130-400); Red Blood Cell (RBC) Count 3.21 mill/uL (4.70-6.10); White Blood Cell (WBC) Count 14.59 10x3/uL (4.8-10.8)
[2025-10-17 05:45] LABS: Vancomycin, Random 21.0 ug/mL (See Comment)
[2025-10-17 05:48] LABS: Anion Gap 11 mmol/L (10-20); BUN (Urea Nitrogen) 18 mg/dL (8.4-25.7); Calc. Creatinine Clearance 87 mL/min (70-130); Calcium 8.3 mg/dL (7.8-10.44); Carbon Dioxide 22 mmol/L (23-31); Chloride 106 mmol/L (98-107); Glucose 138 mg/dL (83-110); Potassium 4.1 mmol/L (3.5-5.1); Sodium 135 mmol/L (136-145)
[2025-10-17] MEDS: Vancomycin 1 GM in Premix 1 BAG IVPB SCH (12:11)
[2025-10-17] MEDS ORDERED: Iopamidol-370 76% 500 ML MDV (1 ML CHARGE) ONE (12:28)
[2025-10-17] MEDS: Apixaban 5 MG TAB PO SCH (21:14)
[2025-10-18 05:22] LABS: #Basophils 0.05 10x3/uL (0.0-0.2); #Eosinophils 0.25 10x3/uL (0.0-0.7); #Monocytes 1.14 10x3/uL (0.11-0.59); #Neutrophils 8.83 10x3/uL (1.40-6.50); %Basophils 0.4 % (0.0-1.0); %Eosinophils 2.1 % (0.0-10.0); %Lymphocytes 12.0 % (21.0-51.0); %Monocytes 9.7 % (0.0-10.0); %Neutrophils 75.1 % (42.0-75.0); Hematocrit 28.4 % (42.0-52.0); Hemoglobin 8.8 g/dL (14.0-18.0); Mean Corpuscular Hemoglobin 29.6 pg (27.0-31.0); Mean Corpuscular Volume 95.6 fL (78.0-98.0); Platelet Count 359 10x3/uL (130-400); Red Blood Cell (RBC) Count 2.97 mill/uL (4.70-6.10); White Blood Cell (WBC) Count 11.76 10x3/uL (4.8-10.8)
[2025-10-18 05:33] LABS: Anion Gap 7 mmol/L (10-20); BUN (Urea Nitrogen) 23 mg/dL (8.4-25.7); Calc. Creatinine Clearance 86 mL/min (70-130); Calcium 8.4 mg/dL (7.8-10.44); Carbon Dioxide 21 mmol/L (23-31); Chloride 110 mmol/L (98-107); Glucose 124 mg/dL (83-110); Potassium 4.5 mmol/L (3.5-5.1); Sodium 133 mmol/L (136-145)
[2025-10-18] MEDS ORDERED: Rosuvastatin 20 MG TAB PO SCH (09:00)
[2025-10-18 17:24] VITALS: BMI 32.9
[2025-10-19 04:55] LABS: #Basophils 0.05 10x3/uL (0.0-0.2); #Eosinophils 0.22 10x3/uL (0.0-0.7); #Monocytes 0.70 10x3/uL (0.11-0.59); #Neutrophils 5.44 10x3/uL (1.40-6.50); %Basophils 0.7 % (0.0-1.0); %Eosinophils 2.9 % (0.0-10.0); %Lymphocytes 16.3 % (21.0-51.0); %Monocytes 9.1 % (0.0-10.0); %Neutrophils 70.6 % (42.0-75.0); Hematocrit 28.9 % (42.0-52.0); Hemoglobin 9.2 g/dL (14.0-18.0); Mean Corpuscular Hemoglobin 30.2 pg (27.0-31.0); Mean Corpuscular Volume 94.8 fL (78.0-98.0); Platelet Count 399 10x3/uL (130-400); Red Blood Cell (RBC) Count 3.05 mill/uL (4.70-6.10); White Blood Cell (WBC) Count 7.69 10x3/uL (4.8-10.8)
[2025-10-19 05:10] LABS: Vancomycin, Random 20.8 ug/mL (See Comment)
[2025-10-19 05:13] LABS: Anion Gap 12 mmol/L (10-20); BUN (Urea Nitrogen) 19 mg/dL (8.4-25.7); Calc. Creatinine Clearance 78 mL/min (70-130); Calcium 8.6 mg/dL (7.8-10.44); Carbon Dioxide 24 mmol/L (23-31); Chloride 107 mmol/L (98-107); Glucose 116 mg/dL (83-110); Potassium 4.3 mmol/L (3.5-5.1); Sodium 139 mmol/L (136-145)
[2025-10-20 05:47] LABS: #Basophils 0.06 10x3/uL (0.0-0.2); #Eosinophils 0.17 10x3/uL (0.0-0.7); #Monocytes 0.69 10x3/uL (0.11-0.59); #Neutrophils 4.78 10x3/uL (1.40-6.50); %Basophils 0.8 % (0.0-1.0); %Eosinophils 2.4 % (0.0-10.0); %Lymphocytes 20.4 % (21.0-51.0); %Monocytes 9.6 % (0.0-10.0); %Neutrophils 66.4 % (42.0-75.0); Hematocrit 28.1 % (42.0-52.0); Hemoglobin 8.5 g/dL (14.0-18.0); Mean Corpuscular Hemoglobin 28.9 pg (27.0-31.0); Mean Corpuscular Volume 95.6 fL (78.0-98.0); Platelet Count 423 10x3/uL (130-400); Red Blood Cell (RBC) Count 2.94 mill/uL (4.70-6.10); White Blood Cell (WBC) Count 7.20 10x3/uL (4.8-10.8)
[2025-10-20 05:58] LABS: Anion Gap 13 mmol/L (10-20); BUN (Urea Nitrogen) 19 mg/dL (8.4-25.7); Calc. Creatinine Clearance 71 mL/min (70-130); Calcium 8.4 mg/dL (7.8-10.44); Carbon Dioxide 26 mmol/L (23-31); Chloride 107 mmol/L (98-107); Glucose 111 mg/dL (83-110); Potassium 4.3 mmol/L (3.5-5.1); Sodium 142 mmol/L (136-145)
[2025-10-22] MEDS: Milk Of Magnesia 30 ML UDCUP PO SCH (10:25)
[2025-10-22 11:39] VITALS: TEMP 97.9
[2025-10-22] MEDS: Senokot 8.6 MG TAB PO SCH (15:45)
[2025-10-22] MEDS: Bisacodyl 10 MG SUPP PR SCH (15:45)
[2025-10-22 15:46] VITALS: BP 130/61
== END 2025-10-22 18:08 | DRG 853 ==
LOC: ERS 15:45 → OBS 19:47
PROVIDERS: ADMIT Internal Medicine; ATTEND Internal Medicine
PROC: 0W3P8ZZ Control Bleeding in Gastrointestinal Tract, Via Natural or Artificial Opening Endoscopic (ICD-10-PCS; 2025-10-08)
PROC: 0JH606Z Insertion of Pacemaker, Dual Chamber into Chest Subcutaneous Tissue and Fascia, Open Approach (ICD-10-PCS; principal; 2025-10-13)
PROC: 02H63JZ Insertion of Pacemaker Lead into Right Atrium, Percutaneous Approach (ICD-10-PCS; 2025-10-13)
PROC: 02HK3JZ Insertion of Pacemaker Lead into Right Ventricle, Percutaneous Approach (ICD-10-PCS; 2025-10-13)
PROC: 3E03329 Introduction of Other Anti-infective into Peripheral Vein, Percutaneous Approach (ICD-10-PCS; 2025-10-16)
PROC: 05HB33Z Insertion of Infusion Device into Right Basilic Vein, Percutaneous Approach (ICD-10-PCS; 2025-10-18)
DX: A41.9 Sepsis, unspecified organism (principal); I50.43 Acute on chronic combined systolic (congestive) and diastolic (congestive) heart failure; K25.6 Chronic or unspecified gastric ulcer with both hemorrhage and perforation; L03.116 Cellulitis of left lower limb; N17.9 Acute kidney failure, unspecified; I13.0 Hypertensive heart and chronic kidney disease with heart failure and stage 1 through stage 4 chronic kidney disease, or unspecified chronic kidney disease; E87.1 Hypo-osmolality and hyponatremia; I49.5 Sick sinus syndrome; Z95.1 Presence of aortocoronary bypass graft; Z88.0 Allergy status to penicillin; Z88.2 Allergy status to sulfonamides; I25.10 Atherosclerotic heart disease of native coronary artery without angina pectoris; N18.30 Chronic kidney disease, stage 3 unspecified; E78.5 Hyperlipidemia, unspecified; E11.42 Type 2 diabetes mellitus with diabetic polyneuropathy; Z79.899 Other long term (current) drug therapy; Z87.891 Personal history of nicotine dependence; I48.0 Paroxysmal atrial fibrillation; D64.9 Anemia, unspecified; I95.81 Postprocedural hypotension; E86.0 Dehydration; K44.9 Diaphragmatic hernia without obstruction or gangrene; K22.89 Other specified disease of esophagus; I08.3 Combined rheumatic disorders of mitral, aortic and tricuspid valves; R65.10 Systemic inflammatory response syndrome (SIRS) of non-infectious origin without acute organ dysfunction; I80.9 Phlebitis and thrombophlebitis of unspecified site
CPT/HCPCS: 33208; 36415; 36416; 71045; 80048; 80053; 80076; 80202; 81001; 83605; 83735; 83880; 84145; 84270; 84403; 84443; 84484; 85014; 85018; 85025; 85049; 86141; 86850; 86900; 86901; 87040; 87081; 87428; 87637; 93005; 93010; 93970; 94760; 96365; 96372; 96375; 97139; 99152; 99153; C1785; C1894; C1898; J0282; J0692; J1650; J1815; J1940; J1956; J2003; J2250; J2354; J2405; J2470; J2704; J3010; J3373; J3375; J3490; J7030; J7050; J7070; J7120; Q9967